=== PATIENT | female | born 1945 | race Caucasian/White ===

== ENCOUNTER 2016-12-06 06:02 | Day surgery (SDC) | payer MEDICARE, OTHER ==
[2016-12-06] MEDS ORDERED: LACTATED RINGERS 1,000 ML IV ONE (06:54)
[2016-12-06] MEDS ORDERED: ONDANSETRON 4 MG/2 ML VIAL IVP ONE (08:00)
[2016-12-06] MEDS ORDERED: MIDAZOLAM 2 MG/2 ML VIAL IVP ONE (08:00)
[2016-12-06] MEDS ORDERED: LIDOCAINE-MPF 2% 5 ML VIAL IM ONE (08:00)
[2016-12-06] MEDS ORDERED: fentaNYL 100 MCG/2 ML VIAL IVP ONE (08:00)
[2016-12-06] MEDS ORDERED: KETOROLAC 30 MG/ML VIAL IVP ONE (08:00)
[2016-12-06] MEDS ORDERED: BUPIVACAINE 0.5% PF 30 ML VIAL INFIL ONE ×2 (08:15)
[2016-12-06 09:03] VITALS: BP 137/60
--- NOTE | 2017-01-10 01:18 | OPERATIVE REPORT ---
DATE OF SURGERY: 12/06/2016 00:00:00 PREOPERATIVE DIAGNOSIS: Left carpal tunnel syndrome. POSTOPERATIVE DIAGNOSIS: Left carpal tunnel syndrome. PROCEDURE: Left carpal tunnel release. SURGEON: Dedrick Barraza MD HEALTH POLICY ANALYST: None. ANESTHESIA: Intravenous sedation plus Marcaine for local anesthetic. FINDINGS: Same. COMPLICATIONS: None. ESTIMATED BLOOD LOSS: None. TOURNIQUET: Esmarch bandage to left arm for 15 minutes. SPECIMEN REMOVED AND CULTURES: None. DISPOSITION: PACU, then home. CONDITION AT END OF PROCEDURE: Stable. INDICATIONS: This is a 71-year-old female with documented history of median nerve hypoesthesia in th e left upper extremity involving the thumb, index finger, and middle finger primarily. She had a doc umented EMG/NCV. She had a trial of splinting without success. She had also attempted antiinflammat ory medications, as well as Tylenol for analgesia. Because of her ongoing symptoms and clumsiness wi th her left arm, she elected to undergo left carpal tunnel release. PROCEDURE IN DETAIL: After consent and identification, the patient was brought to the operating room on the operating litter. After induction of moderate sedation, the left upper extremity was outstre tched on a hand table and prepped and draped free in the usual sterile fashion for upper extremity robles rgery. We used an Esmarch bandage to exsanguinate the left upper extremity to the elbow level. We then roll ed back the Esmarch bandage to expose the wrist. We injected the proposed carpal tunnel incision sit e with 10 mL of 0.5% Marcaine without epinephrine. We made a longitudinal incision from the wrist fl exor crease distally just ulnar to the mid palmar crease for a distance of 2.5 cm. Skin and subcutan eous tissue were divided with a #15 blade scalpel and tenotomy scissors down to the level of the palm ar fascia, which was divided longitudinally. Ragnell retractors and a Heiss retractor were placed in the wound to expose the flexor retinaculum. The retinaculum was divided with sweeping motions in th e mid substance with a #15 blade scalpel until we had just penetrated the mid portion of the flexor r etinaculum. We then placed a [place] elevator deep to the retinaculum distally and used the #15 blade scalpel to complete our dissection distally to the limit of the flexor retinaculum. We then reversed the [place] elevator and placed it under the proximal portion of the retinaculum. We completed our di ssection proximally with a combination of the #15 blade scalpel and the tenotomy scissors. Digital e xploration revealed adequate release of the flexor retinaculum. We irrigated the wound and closed wi th a running interlocked 4-0 nylon suture. Xeroform gauze was applied, followed by fluff Kerlix and a bulky hand dressing overwrapped with a 3-inch STAR bandage. On completion of the procedure, the Esmarch bandage was removed without complication. The patient wa s transferred to the recovery room in good condition, having tolerated the procedure well. JOB #: [id number] EXT JOB #:[id number]
== END 2016-12-06 06:03 | disposition home or self-care (01) ==
LOC: SDS 06:02
PROVIDERS: ATTEND Orthopaedic Surgery
PROC: 01N50ZZ Release Median Nerve, Open Approach (ICD-10-PCS; principal; 2016-12-06 07:30)
DX: G56.02 Carpal tunnel syndrome, left upper limb (principal); I25.2 Old myocardial infarction; I10 Essential (primary) hypertension; K21.9 Gastro-esophageal reflux disease without esophagitis; I25.10 Atherosclerotic heart disease of native coronary artery without angina pectoris; E78.5 Hyperlipidemia, unspecified; F32.9 Major depressive disorder, single episode, unspecified; F41.9 Anxiety disorder, unspecified; J45.909 Unspecified asthma, uncomplicated; G89.29 Other chronic pain; E11.9 Type 2 diabetes mellitus without complications; Z79.84 Long term (current) use of oral hypoglycemic drugs; Z85.3 Personal history of malignant neoplasm of breast; Z85.038 Personal history of other malignant neoplasm of large intestine; Z95.5 Presence of coronary angioplasty implant and graft; Z90.710 Acquired absence of both cervix and uterus; Z90.49 Acquired absence of other specified parts of digestive tract; Z90.13 Acquired absence of bilateral breasts and nipples; Z82.49 Family history of ischemic heart disease and other diseases of the circulatory system; Z84.1 Family history of disorders of kidney and ureter; Z79.82 Long term (current) use of aspirin
CPT/HCPCS: 64721; J7120

== ENCOUNTER 2017-10-16 13:03 | Inpatient (IN) | payer MEDICARE, OTHER ==
[2017-10-16] MEDS ORDERED: cefTRIAXone 1 GM in SODIUM CHLORIDE 0.9% MINIBAG 100 ML IV STA (13:47)
[2017-10-16] MEDS ORDERED: SODIUM CHLORIDE 0.9% 1,000 ML IV ONE (13:47)
--- NOTE | 2017-10-16 13:49 | ED Physician Documentation ---
PD HPI URI - Stated complaint Stated Complaint: COUGH - Chief complaint Chief Complaint: Resp - History obtained from History obtained from: Patient, Family - History of Present Illness Timing - onset: How many days ago (4) Timing duration: Days (4) Timing details: Gradual onset, Still present Associated symptoms: Fever, Chills, Productive cough, Chest pain Contributing factors: Sick contact (sister sick with pneumonia frequently) Improves by: Rest Worsened by: Activity Similar symptoms before: Has not had sx before Recently seen: Other - Additional information Additional information: 72-year-old female survivor of both colon and breast cancer has developed a cough about 4 days ago, the cough has persisted and worsened, she is coughing up yellow phlegm and yesterday she lost her energy. Today she is unable to get out of bed unassisted. She was unable to hold a glass of water. She is brought to the emergency department acutely by her son. Review of Systems Constitutional: reports: Fever, Chills, Myalgias, Fatigue, Sweats Eyes: denies: Decreased vision Ears: denies: Ear pain Nose: reports: Congestion. denies: Rhinorrhea / runny nose Throat: denies: Sore throat Cardiac: reports: Chest pain / pressure. denies: Palpitations, Pedal edema, Calf pain Respiratory: reports: Dyspnea, Cough GI: reports: Abdominal Pain. denies: Nausea, Vomiting : denies: Dysuria Skin: denies: Rash Musculoskeletal: denies: Neck pain, Back pain, Extremity pain Neurologic: reports: Generalized weakness. 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 Cardiovascular: Coronary stent HEENT: Cataracts - Present Medications Home Medications: Ambulatory Orders Medication Instructions Recorded Confirmed Alendronate Sodium 70 mg PO Q7D 07/14/15 09/12/17 HYDROcod/ACETAM 5/325 [Vicodin 1 - 2 tab PO BID PRN 07/14/15 09/12/17 5/325] Hydrochlorothiazide 25 mg PO DAILY 07/14/15 09/12/17 Isosorbide Mononitrate [Isosorbide 60 mg PO DAILY 07/14/15 09/12/17 Mononitrate ER] Metoprolol Tartrate [Lopressor] 25 mg PO BID 07/14/15 09/12/17 Omeprazole 40 mg PO DAILY 07/14/15 09/12/17 Pravastatin [Pravachol] 20 mg PO DAILY 08/04/15 09/12/17 Ubidecarenone/Vitamin E Mixed 1 tab PO DAILY 08/04/15 09/12/17 [Zuw59-[id number] E 200 mg-20 Unit Sfg] busPIRone [Buspar] 15 mg PO BID 08/04/15 09/12/17 Albuterol Sulfate [Proair Hfa] 2 puffs IH Q4HR PRN 10/06/15 09/12/17 Aspirin [Adult Low Dose Aspirin EC] 81 mg PO DAILY 10/06/15 09/12/17 Cholecalciferol (Vitamin D3) 3,000 unit PO DAILY 10/06/15 09/12/17 [Vitamin D] Niacin (Inositol Niacinate) 500 mg PO BID 10/06/15 09/12/17 [Niacin 500 mg Capsule] [place]-3/Dha/Epa/Fish Oil [Fish Oil 2,000 mg PO DAILY 10/06/15 09/12/17 Conc 1,000 mg Softgel] Pravastatin Sodium [Pravachol] 20 mg PO DAILY 11/19/15 09/12/17 Citalopram [CeleXA] 10 mg PO DAILY 09/13/16 09/12/17 metFORMIN [Glucophage] 500 mg PO BID 09/13/16 09/12/17 - Allergies Allergies/Adverse Reactions: Allergies Allergy/AdvReac Type Severity Reaction Status Date / Time atorvastatin calcium * Allergy Rash Verified 10/16/17 13:13 [From Lipitor] mushroom Allergy Anaphylaxis Verified 10/16/17 13:13 cat gut AdvReac Intermediate Unknown Uncoded 10/16/17 13:13 - Social History Does the pt smoke?: No Smoking Status: Former smoker PD ED PE NORMAL - Vitals Vital signs reviewed: Yes (febrile and with diastolic hypertension mild) - General General: Well developed/nourished - HEENT HEENT: Atraumatic, PERRL, EOMI, Other (dry mucous membranes ) - Neck Neck: Supple, no meningeal sign, No bony TTP - Cardiac Cardiac: RRR, No murmur - Respiratory Respiratory: Other (tachypneic at rest with bibasilar rhonchi and decreased breath sounds. ) - Abdomen Abdomen: Soft, Other (mild marlena-umbilical tenderness and erythema. ) - Back Back: No CVA TTP, No spinal TTP - Derm Derm: Normal color, Warm and dry, No rash - Extremities Extremities: No deformity, No edema - Neuro Neuro: No motor deficit, No sensory deficit Eye Opening: Spontaneous Motor: Obeys Commands Verbal: Oriented GCS Score: 15 - Psych Psych: Normal mood, Normal affect Results - Vitals Vitals: Vital Signs - 24 hr 10/16/17 10/16/17 10/16/17 13:09 13:35 14:44 Temperature 38.1 C H 38.9 C H 36.7 C Heart Rate 87 87 Respiratory 24 19 Rate Blood Pressure 119/81 H 125/57 L O2 Saturation 97 100 Oxygen O2 Source Room air - EKG (time done) 1330 Rate: Rate (enter#) (84) Rhythm: NSR Ischemia: ST depression (V2 and V3 ) Compare to prior EKG: Changed from prior EKG (SPT 10-16-[address] depression in V2 and V3 has increased. ) Computer interpretation: Agree with computer - Labs Labs: Laboratory Tests 10/16/17 10/16/17 10/16/17 13:28 13:28 13:28 WBC 11.5 H RBC 3.21 L Hgb 8.0 L Hct 25.7 L MCV 80.2 L MCH 25.0 L MCHC 31.3 L RDW 18.5 H Plt Count 292 MPV 8.1 Neut # 9.0 H Lymph # 1.0 L [place] # 1.2 H Eos # 0.3 Baso # 0.0 Absolute Nucleated RBC 0.01 Nucleated RBC % 0.0 Sodium 137 Potassium 4.1 Chloride 104 Carbon Dioxide 25 Anion Gap 8.0 BUN 29 H Creatinine 1.0 Estimated GFR (MDRD) 54 L Glucose 154 H Lactic Acid 1.3 Calcium 8.9 Total Bilirubin 0.7 AST 26 ALT 21 Alkaline Phosphatase 41 L Troponin I Total Protein 6.4 L Albumin 3.2 Globulin 3.2 Albumin/Globulin Ratio 1.0 Lipase 18 L Urine Color Urine Clarity Urine pH Ur Specific [place] Urine Protein Urine Glucose (UA) Urine Ketones Urine Occult Blood Urine Nitrite Urine Bilirubin Urine Urobilinogen Ur Leukocyte Esterase Urine RBC Urine WBC Ur Squamous Epith Cells Urine Bacteria Ur Microscopic Review Urine Culture Comments 10/16/17 10/16/17 13:28 13:57 WBC RBC Hgb Hct MCV MCH MCHC RDW Plt Count MPV Neut # Lymph # [place] # Eos # Baso # Absolute Nucleated RBC Nucleated RBC % Sodium Potassium Chloride Carbon Dioxide Anion Gap BUN Creatinine Estimated GFR (MDRD) Glucose Lactic Acid Calcium Total Bilirubin AST ALT Alkaline Phosphatase Troponin I 0.08 Total Protein Albumin Globulin Albumin/Globulin Ratio Lipase Urine Color YELLOW Urine Clarity CLEAR Urine pH 5.5 Ur Specific [place] 1.025 Urine Protein NEGATIVE Urine Glucose (UA) NEGATIVE Urine Ketones NEGATIVE Urine Occult Blood TRACE-INTA Urine Nitrite NEGATIVE Urine Bilirubin NEGATIVE Urine Urobilinogen 0.2 (NORMAL) Ur Leukocyte Esterase TRACE H Urine RBC 0-5 Urine WBC 6-10 H Ur Squamous Epith Cells RARE Squamous Urine Bacteria Few Ur Microscopic Review INDICATED Urine Culture Comments INDICATED - Rads (name of study) 1 veiw chest Radiology: Prelim report reviewed (Impression: No acute findings.), EMP read indepedently, See rad report Procedures - IVC sono (time) 1335 Bedside IVC sono: IVC measures (cm) (unable to visualize) PD MEDICAL DECISION MAKING - ED course Complexity details: reviewed old records, reviewed results, re-evaluated patient , considered differential, d/w patient, d/w family ED course: 72 year old female arrives to the emergency department febrile and weak. She has had a cough for 4 days. My initial impression was likely pneumonia and this was not present on her x-ray. She does have elevated white blood cell count and bacteria in the urine this is treated with intravenous ceftriaxone. Findings on laboratory exam are concerning for an elevated white blood cell count a low hematocrit at 25.7 and indeterminate troponin. She does have ST depression in the anterior leads on her electric cardiogram that are increased from prior electrocardiogram. My concern is for myocardial strain with illness and this may be related to anemia, dehydration or infection or all 3. I discussed the case with Dr. Balta De La Cruz and he will put the patient into the hospital on observation to trend her concerning findings. Departure - Departure Disposition: ED Place in Observation Clinical Impression: Upper respiratory tract infection Qualifiers: URI type: unspecified URI Qualified Code(s): J06.9 - Acute upper respiratory infection, unspecified Anemia Qualifiers: Anemia type: unspecified type Qualified Code(s): D64.9 - Anemia, unspecified Urinary tract infection Qualifiers: Urinary tract infection type: acute cystitis Hematuria presence: without hematuria Qualified Code(s): N30.00 - Acute cystitis without hematuria
[2017-10-16 13:51] LABS: BASOPHILS % (AUTO) 0.2 %; EOSINOPHILS # (AUTO) 0.3 10^3/uL (0.0-0.7); EOSINOPHILS % (AUTO) 2.8 %; LYMPHOCYTES % (AUTO) 8.9 %; MEAN CORPUSCULAR HGB CONC 31.3 g/dL (32.0-36.0); MEAN CORPUSCULAR VOLUME 80.2 fL (81.0-99.0); MEAN PLATELET VOLUME 8.1 fL (7.9-10.8); MONOCYTES # (AUTO) 1.2 10^3/uL (0.0-1.0); MONOCYTES % (AUTO) 10.2 %; NEUTROPHILS % (AUTO) 77.9 %; PLT - PLATELET COUNT 292 10^3/uL (130-450); RED BLOOD COUNT 3.21 10^6/uL (4.20-5.40); RED CELL DISTRIBUTION WIDTH 18.5 % (12.0-15.0); WHITE BLOOD COUNT 11.5 x10^3/uL (4.8-10.8)
[2017-10-16 13:58] LABS: ALBUMIN 3.2 g/dL (3.2-5.5); BILIRUBIN,TOTAL 0.7 mg/dL (0.2-1.0); CALCIUM 8.9 mg/dL (8.5-10.3); TOTAL PROTEIN 6.4 g/dL (6.7-8.2)
[2017-10-16 14:11] LABS: BILIRUBIN,URINE NEGATIVE (NEGATIVE); GLUCOSE, URINE (UA) NEGATIVE (NEGATIVE); KETONES,URINE (UA) NEGATIVE (NEGATIVE); LEUKOCYTE ESTERASE, URINE TRACE (NEGATIVE); NITRITE,URINE NEGATIVE (NEGATIVE); OCCULT BLOOD,URINE TRACE-INTA (NEGATIVE); PH,URINE 5.5 PH (5.0-7.5); PROTEIN,URINE NEGATIVE (NEGATIVE); UROBILINOGEN,URINE 0.2 (NORMAL) E.U./dL (NORMAL)
[2017-10-16 14:13] LABS: CLARITY,URINE CLEAR (CLEAR)
[2017-10-16 14:23] LABS: BACTERIA,URINE Few /HPF (None Seen); RBC,URINE 0-5 /HPF (0-5); SQUAMOUS EPITHELIAL CELL,UR RARE Squamous (<= Few)
--- NOTE | 2017-10-16 14:45 | XRAY Report ---
EXAM: CHEST RADIOGRAPHY EXAM DATE: 10/16/2017 01:56 PM. CLINICAL HISTORY: Cough with chest pain. COMPARISON: 11/18/2016. TECHNIQUE: 1 view. FINDINGS: Lungs/Pleura: No focal consolidation. No pleural effusion. No pneumothorax. Mediastinum: The heart is enlarged. Other: ECG leads overlie the chest. IMPRESSION: No acute findings. [facility] Referring Provider Line: [phone] SITE ID: [id number]
--- NOTE | 2017-10-16 14:45 | XRAY Preliminary Report ---
Exam: XR CHEST 1 VIEW X-RAY IMPRESSION: No acute findings. [facility] SITE ID: [id number]
[2017-10-16] MEDS ORDERED: SODIUM CHLORIDE 0.9% 1,000 ML IV SCH (16:00)
--- NOTE | 2017-10-16 16:05 | HISTORY & PHYSICAL EXAMINATION ---
Chief Complaint - Chief Complaint Chief Complaint: cough with sputum History of Present Illness - Admitted From Admitted From:: ER - History Obtained From History obtained from: pt - History of Present Illness HPI Comment/Other: Ms. Cary is 72-yrs-old female with a PMH significant for HTN, Hyperlipidemia, CAD with coronary stent, [place], Asthma, DM2, GERD, Colon polyps, cholelithiasis, depression, anxiety, osteoarthritis, fibromyalgia, RA, osteopenia, chronic back pain, hx of breast cancer with status post of bilateral mastectomy, who present ER for complaint of fever and cough with greenish sputum for two days. pt is a poor historian. Pt report she felt sickness for two days with cough, greenish sputum and fever. Pt state she is living with her young sister in [place]. She take care of her young sister because her young sister is dialysis pt and need her help. She denies chest pain, shortness of breathing, dysuria. CXR reveals unremarkable. Pt had slight elevated WBC. UA reveals possible UTI. pt was fible 38.1 degree at ER. 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 Pt for many years. Pt had three children. Daughter is in [place], one son is in the [place], one from drug abuse. Living arrangement: At home Living Situation: With family Social History Notes: pt reports she never somke cigarette, no alcohol and drug problem. She took care of her young sister because hre young sister has dialysis medical problem, need her help. - Substance History Use: Uses substance without health or social issues: NONE Dependence: Experiences withdrawal or developed tolerances: NONE - POLST POLST Status: Full Code Meds/Allgy - Home Medications Home Medications: Ambulatory Orders Medication Instructions Recorded Confirmed Alendronate Sodium 70 mg PO Q7D 07/14/15 10/16/17 Metoprolol Tartrate [Lopressor] 25 mg PO BID 07/14/15 10/16/17 Omeprazole 40 mg PO DAILY 07/14/15 10/16/17 Pravastatin [Pravachol] 20 mg PO DAILY 08/04/15 10/16/17 busPIRone [Buspar] 15 mg PO BID 08/04/15 10/16/17 Aspirin [Adult Low Dose Aspirin EC] 81 mg PO DAILY 10/06/15 10/16/17 [place]-3/Dha/Epa/Fish Oil [Fish Oil 2,000 mg PO DAILY 10/06/15 10/16/17 Conc 1,000 mg Softgel] Citalopram [CeleXA] 20 mg PO DAILY 09/13/16 10/16/17 Cyanocobalamin (Vitamin B-12) 500 mcg SL DAILY 10/16/17 10/16/17 [Vitamin B-12 (500 mcg sublingual)] Garlic 1,000 mg PO DAILY 10/16/17 10/16/17 Multivit-Min/Folic Acid/Vit K1 1 each PO DAILY 10/16/17 10/16/17 [Multi For Her 50 Plus Softgel] Niacin (Inositol Niacinate) 500 mg PO BID 10/16/17 10/16/17 [Niacin 500 mg Capsule] Metformin HCl 100 mg PO BIDWM 10/17/17 10/17/17 hydroCHLOROthiazide 25 mg PO DAILY 10/17/17 10/17/17 [Hydrochlorothiazide] - Allergies Allergies/Adverse Reactions: Allergies Allergy/AdvReac Type Severity Reaction Status Date / Time lactose Allergy Intermediate Rash Verified 10/16/17 17:55 atorvastatin calcium * Allergy Rash Verified 10/16/17 13:13 [From Lipitor] mushroom Allergy Anaphylaxis Verified 10/16/17 13:13 cat gut AdvReac Intermediate Unknown Uncoded 10/16/17 13:13 Review of Systems - Constitutional Constitutional: reports: Fever, Chills. denies: Malaise, Weakness, Poor appetite, Diaphoresis, Night sweats - Eyes Eyes: denies: Pain, Irritation, Amaurosis, Blurred vision, Spots in vision, Field loss, Vision loss, Dipolpia - Ears, Nose & Throat Ears, Nose & Throat: denies: Ear pain, Hearing loss, Hearing aids, Tinnitus, Vertigo, Nasal pain, Nasal discharge, Nosebleeds, Nasal obstruction, Nasal congestion, Postnasal drainage, Sore throat, Bleeding gums - Cardiovascular Cariovascular: denies: Irregular heart rate, Palpitations, Chest pain, Edema, Lightheadedness, Syncope, Exertional dyspnea, Decr. exercise tolerance - Respiratory Respiratory: reports: Cough, Sputum production. denies: Wheezing, Snoring, Hemoptysis, Orthopnea, SOB at rest, SOB with exertion - Gastrointestinal Gastrointestinal: denies: Abdominal pain, Abdominal distention, Constipation, Diarrhea, Change in bowel habits, Rectal bleeding, Black stools, Bloody stools, Nausea, Vomiting, Bile emesis, [place] blood emesis - Genitourinary Genitourinary: denies: Dysuria, Frequency, Urgency, Hematuria, Incontinence, Flank pain, Nocturia, Urethral discharge - Musculoskeletal Musculoskeletal: denies: Muscle pain, Back pain, Muscle aches, Stiffness, Limited range of motion, Muscle weakness, Gout, Joint pain - Integumentary Integumentary: denies: Rash, Pruritis, Lesions, Dryness, Acne, Pigment changes - Neurological Neurological: denies: General weakness, Focal weakness, Headache, Dizziness, Numbness, Memory problems, Pre-existing deficit, Abnormal gait, Seizures, Incoordination, Slurred speech - Psychiatric Psychiatric: denies: Depression, Anxiety, Suicidal, Delusions, Hallucinations, Homicidal - Endocrine Endocrine: denies: Polyuria, Polydypsia, Polyphagia, Intolerance to cold - Hematologic/Lymphatic Hematologic/Lymphatic: reports: Anemia. denies: Bruising, Petechiae, Blood clots, Lymphadenopathy, Bleeding tendencies Exam - Vital Signs Reviewed Vital Signs: Yes Vital Signs: Vital Signs x48h Temp Pulse Resp BP Pulse Ox 10/16/17 15:00 90 21 139/71 H 96 10/16/17 14:44 36.7 C 87 19 125/57 L 100 10/16/17 13:35 38.9 C H 10/16/17 13:09 38.1 C H 87 24 119/81 H 97 - Physical Exam General Appearance: positive: No acute distress, Alert. negative: Lethargic Eyes Bilateral: positive: Normal inspection, PERRL, No lid inflammation, Conjunctivae nml ENT: positive: ENT inspection nml, Pharynx nml, No signs of dehydration. negative: Purulent nasal drainage, Pharyngeal erythema, Oral lesions Neck: positive: Nml inspection, Thyroid nml, No JVD, Trachea midline. negative : Thyromegaly, Lymphadenopathy (R), Lymphadenopathy (L), Stiff neck, Swelling/ bruising, Tracheal deviation Respiratory: positive: Chest non-tender, No respiratory distress, Breath sounds nml. negative: Wheezes, Rales, Rhonchi Cardiovascular: positive: Regular rate & rhythm, No murmur, No gallop. negative : Irregularly irregular, Extrasystoles, Tachycardia, Bradycardia, Systolic murmur, Diastolic murmur Peripheral Pulses: positive: 2+ Abdomen: positive: Non-tender, No organomegaly, Nml bowel sounds, No distention. negative: Tenderness, Guarding, Rebound Back: positive: Nml inspection. negative: CVA tenderness (R), CVA tenderness (L ) Skin: positive: Color nml, No rash, Warm, Dry. negative: Cyanosis, Diaphoresis , Pallor Extremities: positive: Non-tender, Full ROM, Nml appearance. negative: Calf tenderness, Joint swelling, Gautam's sign/cords Neurologic/Psychiatric: positive: Sensation nml, Mood/affect nml. negative: Sensory loss, Facial droop, Slurred/abnml speech, Depressed mood/affect Conclusion/Plan - Problem List (1) Cough productive of purulent sputum Conclusion/Plan: CXR reveals negative, but pt began symptoms two days ago per pt report. pt had fever in home and ER. WBC is slightly elevated. treated with antibiotics, check lactic acid blood culture , follow up gently IVF hx of asthma/COPD, INH treatment, O2 supplement as needed daily lab, and vital monitor (2) Fever chills Conclusion/Plan: clinic indicate PNA treat with antibiotics IVF, check lactic acid lab and vital monitor (3) Urinary tract infection Conclusion/Plan: weak diagnosis of UTI, pt has Rocephin for PNA, continue follow up UA Qualifiers: Urinary tract infection type: acute cystitis Hematuria presence: without hematuria Qualified Code(s): N30.00 - Acute cystitis without hematuria (4) DM2 (diabetes mellitus, type 2) Conclusion/Plan: hx of DM2 check A1C, follow up slide scale, ACHS (5) Chronic anemia Conclusion/Plan: chronic anemia, Hx of breast cancer and colon cancer. anemia study, follow up MCV 80.2, seems microcytic anemia, start on Ferrous sulf H&H, follow as needed for blood transfusion pt denies GI bleed, order once Occult blood stool test (6) Hx of coronary artery disease Conclusion/Plan: stable, pt denies chest pain. first Troponin 0.08, order second one, follow up. EKG unremarkable for acute CAD on tele monitor vital monitor (7) HTN (hypertension) Conclusion/Plan: stable, resume home meds (8) DVT prophylaxis Conclusion/Plan: SCD and Lovenox (9) Full code status Conclusion/Plan: pt request full code status - Lab Results Fish Bones: 10/17/17 06:47 10/17/17 06:47 Core Measures - Anticipated LOS I expect patient to be DC'd or transferred within 96 hours.: Yes - DVT/VTE - Prophylaxis VTE/DVT Device ordered at admit?: Yes VTE/DVT Prophylaxis med ordered at admit?: Yes
[2017-10-16 16:23] LABS: % IRON SATURATION 5 % (20-50); IRON 18 ug/dL (28-170); TOTAL IRON BINDING CAPACITY 374 ug/dL (250-450); TRANSFERRIN 267 mg/dL (192-382)
[2017-10-16 16:30] LABS: MEAN RETIC VALUE 119.4; RED BLOOD COUNT 3.19 10^6/uL (4.20-5.40)
[2017-10-16 16:39] LABS: FERRITIN 17.2 ng/mL (11.0-306.8)
[2017-10-16] MEDS: INSULIN ASPART 300 UNIT/3 ML PEN SUBQ SCH ×2 (16:45→21:25)
[2017-10-16] MEDS: IPRATROPIUM/ALBUTEROL 3 ML NEB INH PRN (17:00)
[2017-10-16] MEDS: FERROUS SULFATE 325 MG TABLET PO SCH (17:20)
[2017-10-16 17:23] LABS: HB2 TOTAL 8.6 g/dL; HEMOGLOBIN A1C 0.37 g/dL; HEMOGLOBIN A1C % 6.1 % (4.6-6.2)
[2017-10-16] MEDS: SODIUM CHLORIDE FLUSH 0.9% 10 ML SYRINGE IVP SCH (17:25)
[2017-10-16] MEDS ORDERED: ALBUTEROL NEB 2.5 MG/3 ML INH PRN (17:31)
[2017-10-16] MEDS: AZITHROMYCIN INJ 500 MG in SODIUM CHLORIDE 0.9% 250 ML IV SCH (18:04)
[2017-10-16] MEDS: ACETAMINOPHEN 325 MG TABLET PO PRN (19:50)
[2017-10-16] MEDS: busPIRone 5 MG TABLET PO SCH (21:25)
[2017-10-16] MEDS: PRAVASTATIN 10 MG TABLET PO SCH (21:25)
[2017-10-16] MEDS: METOPROLOL TARTRATE 25 MG TABLET PO SCH (21:49)
[2017-10-16 22:09] LABS: HGB - HEMOGLOBIN 6.5 g/dL (12.0-16.0)
[2017-10-17] MEDS: SODIUM CHLORIDE FLUSH 0.9% 10 ML SYRINGE IVP SCH ×4 (06:18→23:43)
[2017-10-17 06:55] LABS: BASOPHILS # (AUTO) 0.1 10^3/uL (0.0-0.1); BASOPHILS % (AUTO) 0.7 %; EOSINOPHILS # (AUTO) 0.5 10^3/uL (0.0-0.7); EOSINOPHILS % (AUTO) 5.2 %; HGB - HEMOGLOBIN 9.1 g/dL (12.0-16.0); LYMPHOCYTES % (AUTO) 21.7 %; MEAN CORPUSCULAR HEMOGLOBIN 25.6 pg (27.0-31.0); MEAN CORPUSCULAR HGB CONC 31.7 g/dL (32.0-36.0); MEAN CORPUSCULAR VOLUME 80.9 fL (81.0-99.0); MEAN PLATELET VOLUME 7.8 fL (7.9-10.8); MONOCYTES # (AUTO) 1.2 10^3/uL (0.0-1.0); MONOCYTES % (AUTO) 12.8 %; NEUTROPHILS # (AUTO) 5.6 10^3/uL (1.5-6.6); NEUTROPHILS % (AUTO) 59.6 %; PLT - PLATELET COUNT 242 10^3/uL (130-450); RED BLOOD COUNT 3.54 10^6/uL (4.20-5.40); RED CELL DISTRIBUTION WIDTH 16.9 % (12.0-15.0); WHITE BLOOD COUNT 9.4 x10^3/uL (4.8-10.8)
[2017-10-17 07:04] LABS: ALBUMIN 2.7 g/dL (3.2-5.5); BILIRUBIN,TOTAL 0.8 mg/dL (0.2-1.0); CALCIUM 7.8 mg/dL (8.5-10.3); CREATININE 0.8 mg/dL (0.4-1.0); MAGNESIUM 1.3 mg/dL (1.7-2.8); TOTAL PROTEIN 5.5 g/dL (6.7-8.2)
[2017-10-17] MEDS: SODIUM CHLORIDE 0.9% 1,000 ML IV SCH ×2 (07:33→14:40)
[2017-10-17] MEDS: INSULIN ASPART 300 UNIT/3 ML PEN SUBQ SCH ×4 (07:34→21:25)
[2017-10-17] MEDS ORDERED: MAGNESIUM OXIDE 400 MG TABLET PO ONE (08:00)
[2017-10-17] MEDS: cefTRIAXone 1 GM in SODIUM CHLORIDE 0.9% MINIBAG 100 ML IV SCH (08:31)
[2017-10-17] MEDS: METOPROLOL TARTRATE 25 MG TABLET PO SCH ×2 (08:32→21:18)
[2017-10-17] MEDS: busPIRone 5 MG TABLET PO SCH ×2 (08:32→21:18)
[2017-10-17] MEDS: FERROUS SULFATE 325 MG TABLET PO SCH ×2 (08:33→17:20)
[2017-10-17] MEDS: CITALOPRAM 10 MG TABLET PO SCH (08:33)
[2017-10-17] MEDS: ENOXAPARIN 40 MG/0.4 ML SYRINGE SUBQ SCH (08:33)
[2017-10-17] MEDS: FAMOTIDINE 20 MG TABLET PO SCH (08:34)
[2017-10-17] MEDS: POLYETHYLENE GLYCOL 3350 17 GM PACKET PO SCH (08:34)
[2017-10-17] MEDS: guaiFENesin 600 MG TABLET PO SCH ×2 (08:46→21:18)
[2017-10-17] MEDS: ACETAMINOPHEN 325 MG TABLET PO PRN ×3 (08:51→23:42)
[2017-10-17] MEDS ORDERED: cefTRIAXone 1 GM VIAL IVP SCH (09:00)
[2017-10-17] MEDS: AZITHROMYCIN INJ 500 MG in SODIUM CHLORIDE 0.9% 250 ML IV SCH (09:29)
--- NOTE | 2017-10-17 11:38 | PROVIDER PROGRESS NOTE ---
Subjective - Prog Note Date Prog Note Date: 10/17/17 - Subjective Pt reports feeling: Improved Subjective: pt report she feels better, cough is better, no fever on last night. Pt denies chest pain, SOB. Current Medications - Current Medications Current Medications: Active Medications Acetaminophen (Tylenol) 650 mg PO Q4HR PRN PRN Reason: Pain 1 to 4 Last Admin: 10/17/17 08:51 Dose: 650 mg Albuterol () 2.5 mg INH RTQ4H PRN PRN Reason: Wheezing Last Admin: 10/17/17 10:53 Dose: 2.5 mg Albuterol/Ipratropium (Duoneb) 3 ml INH Q4HR PRN PRN Reason: Wheezing Last Admin: 10/16/17 17:00 Dose: 3 ml Alendronate Sodium (Fosamax) 70 mg PO Q7D [facility] Buspirone HCl (Buspar) 15 mg PO BID [facility] Last Admin: 10/17/17 08:32 Dose: 15 mg Citalopram Hydrobromide (Celexa) 20 mg PO DAILY [facility] Last Admin: 10/17/17 08:33 Dose: 20 mg Enoxaparin Sodium (Lovenox) 40 mg SUBQ DAILY [facility] Last Admin: 10/17/17 08:33 Dose: 40 mg Famotidine (Pepcid) 20 mg PO DAILY [facility] Last Admin: 10/17/17 08:34 Dose: 20 mg Ferrous Sulfate (Feosol) 325 mg PO BIDWM [facility] Last Admin: 10/17/17 08:33 Dose: 325 mg Guaifenesin (Mucinex) 600 mg PO BID [facility] Last Admin: 10/17/17 08:46 Dose: 600 mg Ceftriaxone Sodium 1 gm/ (Sodium Chloride) 100 mls @ 200 mls/hr IV DAILY [facility] Last Infusion: 10/17/17 09:08 Dose: Infused Azithromycin 500 mg/ Sodium (Chloride) 250 mls @ 250 mls/hr IV DAILY [facility] Last Infusion: 10/17/17 10:33 Dose: Infused Magnesium Sulfate 1 gm/ Sodium (Chloride) 52 mls @ 54 mls/hr IV ONCE ONE Stop: 10/17/17 13:57 Calcium Gluconate 1,000 mg/ (Sodium Chloride) 60 mls @ 60 mls/hr IV ONCE ONE Stop: 10/17/17 12:59 Sodium Chloride (Normal Saline 0.9%) 1,000 mls @ 75 mls/hr IV .[id number] [facility] Last Admin: 10/17/17 07:33 Dose: Not Given Insulin Aspart (Novolog) 1 - 5 unit SUBQ 0800,1200,1700,2100 [facility] PRN Reason: Protocol Last Admin: 10/17/17 07:34 Dose: Not Given Metoprolol Tartrate (Lopressor) 25 mg PO BID [facility] Last Admin: 10/17/17 08:32 Dose: 25 mg Ondansetron HCl (Zofran Inj) 4 mg IVP Q6HR PRN PRN Reason: Nausea / Vomiting Polyethylene Glycol (Miralax) 17 gm PO DAILY [facility] Last Admin: 10/17/17 08:34 Dose: 17 gm Pravastatin Sodium (Pravachol) 20 mg PO QPM [facility] Last Admin: 10/16/17 21:25 Dose: 20 mg Sodium Chloride (Normal Saline Flush 0.9%) 10 ml IVP PRN PRN PRN Reason: NEEDED PER PROVIDER ORDERS Sodium Chloride (Normal Saline Flush 0.9%) 10 ml IVP 0100,0900,1700 [facility] Last Admin: 10/17/17 07:35 Dose: Not Given Alendronate Sodium 70 mg PO Q7D 07/14/15 Metoprolol Tartrate [Lopressor] 25 mg PO BID 07/14/15 Omeprazole 40 mg PO DAILY 07/14/15 Pravastatin [Pravachol] 20 mg PO DAILY 08/04/15 busPIRone [Buspar] 15 mg PO BID 08/04/15 Aspirin [Adult Low Dose Aspirin EC] 81 mg PO DAILY 10/06/15 [place]-3/Dha/Epa/Fish Oil [Fish Oil Conc 1,000 mg Softgel] 2,000 mg PO DAILY Citalopram [CeleXA] 20 mg PO DAILY 09/13/16 Cyanocobalamin (Vitamin B-12) [Vitamin B-12 (500 mcg sublingual)] 500 mcg SL DAILY 10/16/17 Garlic 1,000 mg PO DAILY 10/16/17 Multivit-Min/Folic Acid/Vit K1 [Multi For Her 50 Plus Softgel] 1 each PO DAILY 10/16/17 Niacin (Inositol Niacinate) [Niacin 500 mg Capsule] 500 mg PO BID 10/16/17 Metformin HCl 100 mg PO BIDWM 10/17/17 hydroCHLOROthiazide [Hydrochlorothiazide] 25 mg PO DAILY 10/17/17 Objective - Vital Signs/Intake & Output Reviewed Vital Signs: Yes Vital Signs: Vital Signs x48h Temp Pulse Pulse Resp BP BP Pulse Ox 10/17/17 10:53 65 16 10/17/17 08:32 124/53 L 10/17/17 07:26 37.6 C H 70 17 124/53 L 96 10/17/17 06:09 37.6 C H 70 18 120/60 Intake & Output: Intake & Output 10/14/17 10/15/17 10/16/17 10/17/17 23:59 23:59 23:59 23:59 Intake Total 0012.862 4781.513 Output Total 1550 Balance 1055.092 527.513 - Objective General Appearance: positive: No acute distress, Alert. negative: Lethargic Eyes Bilateral: positive: Normal inspection, PERRL, No lid inflammation, Conjunctivae nml ENT: positive: ENT inspection nml, Pharynx nml, No signs of dehydration. negative: Purulent nasal drainage, Pharyngeal erythema, Oral lesions Neck: positive: Nml inspection, Thyroid nml, No JVD, Trachea midline. negative : Thyromegaly, Lymphadenopathy (R), Lymphadenopathy (L), Stiff neck, Carotid bruit, Swelling/bruising, Tracheal deviation Respiratory: positive: Chest non-tender, No respiratory distress, Breath sounds nml. negative: Wheezes, Rales, Rhonchi Cardiovascular: positive: Regular rate & rhythm, No murmur, No gallop. negative : Irregularly irregular, Extrasystoles, Tachycardia, Bradycardia, JVD present, Systolic murmur, Diastolic murmur Peripheral Pulses: 2+ Radial (R), 2+ Radial (L), 2+ Dorsalis pedis (R), 2+ Dorsalis pedis (L) Abdomen: positive: Non-tender, No organomegaly, Nml bowel sounds, No distention. negative: Tenderness, Guarding, Rebound Back: positive: Nml inspection. negative: CVA tenderness (R), CVA tenderness (L ) Skin: positive: Color nml, No rash, Warm, Dry. negative: Cyanosis, Diaphoresis , Pallor Extremities: positive: Non-tender, Full ROM, Nml appearance. negative: Calf tenderness, Joint swelling, Gautam's sign/cords Neurologic/Psychiatric: positive: Motor nml, Sensation nml, Mood/affect nml. negative: Weakness, Sensory loss, Facial droop, Slurred/abnml speech, Depressed mood/affect - Lab Results Fish Bones: 10/17/17 06:47 10/17/17 06:47 Other Labs: Lab Results x24hrs 10/17/17 10/17/17 10/17/17 Range/Units 07:23 06:47 06:47 WBC 9.4 (4.8-10.8) x10^3/uL RBC 3.54 L (4.20-5.40) 10^6/uL Hgb 9.1 L (12.0-16.0) g/dL Hct 28.7 L (37.0-47.0) % MCV 80.9 L (81.0-99.0) fL MCH 25.6 L (27.0-31.0) pg MCHC 31.7 L (32.0-36.0) g/dL RDW 16.9 H (12.0-15.0) % Plt Count 242 (130-450) 10^3/uL MPV 7.8 L (7.9-10.8) fL Neut # 5.6 (1.5-6.6) 10^3/uL Lymph # 2.0 (1.5-3.5) 10^3/uL Sabine # 1.2 H (0.0-1.0) 10^3/uL Eos # 0.5 (0.0-0.7) 10^3/uL Baso # 0.1 (0.0-0.1) 10^3/uL Absolute Nucleated RBC 0.00 x10^3/uL Nucleated RBC % 0.0 /100WBC Sodium 139 (135-145) mmol/L Potassium 3.5 (3.5-5.0) mmol/L Chloride 107 (101-111) mmol/L Carbon Dioxide 24 (21-32) mmol/L Anion Gap 8.0 (6-13) BUN 20 (6-20) mg/dL Creatinine 0.8 (0.4-1.0) mg/dL Estimated GFR (MDRD) 70 L (>89) Glucose 101 H (70-100) mg/dL POC Whole Bld Glucose 96 (70 - 100) mg/dL Calcium 7.8 L (8.5-10.3) mg/dL Magnesium 1.3 L (1.7-2.8) mg/dL Total Bilirubin 0.8 (0.2-1.0) mg/dL AST 18 (10-42) IU/L ALT 16 (10-60) IU/L Alkaline Phosphatase 37 L (42-121) IU/L Troponin I (<0.49) ng/mL Total Protein 5.5 L (6.7-8.2) g/dL Albumin 2.7 L (3.2-5.5) g/dL Globulin 2.8 (2.1-4.2) g/dL Albumin/Globulin Ratio 1.0 (1.0-2.2) 10/16/17 10/16/17 10/16/17 Range/Units 23:20 21:56 21:18 WBC (4.8-10.8) x10^3/uL RBC (4.20-5.40) 10^6/uL Hgb 6.5 L* (12.0-16.0) g/dL Hct 21.4 L (37.0-47.0) % MCV (81.0-99.0) fL MCH (27.0-31.0) pg MCHC (32.0-36.0) g/dL RDW (12.0-15.0) % Plt Count (130-450) 10^3/uL MPV (7.9-10.8) fL Neut # (1.5-6.6) 10^3/uL Lymph # (1.5-3.5) 10^3/uL Sabine # (0.0-1.0) 10^3/uL Eos # (0.0-0.7) 10^3/uL Baso # (0.0-0.1) 10^3/uL Absolute Nucleated RBC x10^3/uL Nucleated RBC % /100WBC Sodium (135-145) mmol/L Potassium (3.5-5.0) mmol/L Chloride (101-111) mmol/L Carbon Dioxide (21-32) mmol/L Anion Gap (6-13) BUN (6-20) mg/dL Creatinine (0.4-1.0) mg/dL Estimated GFR (MDRD) (>89) Glucose (70-100) mg/dL POC Whole Bld Glucose 138 H (70 - 100) mg/dL Calcium (8.5-10.3) mg/dL Magnesium (1.7-2.8) mg/dL Total Bilirubin (0.2-1.0) mg/dL AST (10-42) IU/L ALT (10-60) IU/L Alkaline Phosphatase (42-121) IU/L Troponin I 0.11 (<0.49) ng/mL Total Protein (6.7-8.2) g/dL Albumin (3.2-5.5) g/dL Globulin (2.1-4.2) g/dL Albumin/Globulin Ratio (1.0-2.2) 10/16/17 10/16/17 Range/Units 18:55 16:43 WBC (4.8-10.8) x10^3/uL RBC (4.20-5.40) 10^6/uL Hgb (12.0-16.0) g/dL Hct (37.0-47.0) % MCV (81.0-99.0) fL MCH (27.0-31.0) pg MCHC (32.0-36.0) g/dL RDW (12.0-15.0) % Plt Count (130-450) 10^3/uL MPV (7.9-10.8) fL Neut # (1.5-6.6) 10^3/uL Lymph # (1.5-3.5) 10^3/uL Sabine # (0.0-1.0) 10^3/uL Eos # (0.0-0.7) 10^3/uL Baso # (0.0-0.1) 10^3/uL Absolute Nucleated RBC x10^3/uL Nucleated RBC % /100WBC Sodium (135-145) mmol/L Potassium (3.5-5.0) mmol/L Chloride (101-111) mmol/L Carbon Dioxide (21-32) mmol/L Anion Gap (6-13) BUN (6-20) mg/dL Creatinine (0.4-1.0) mg/dL Estimated GFR (MDRD) (>89) Glucose (70-100) mg/dL POC Whole Bld Glucose 118 H (70 - 100) mg/dL Calcium (8.5-10.3) mg/dL Magnesium (1.7-2.8) mg/dL Total Bilirubin (0.2-1.0) mg/dL AST (10-42) IU/L ALT (10-60) IU/L Alkaline Phosphatase (42-121) IU/L Troponin I 0.15 (<0.49) ng/mL Total Protein (6.7-8.2) g/dL Albumin (3.2-5.5) g/dL Globulin (2.1-4.2) g/dL Albumin/Globulin Ratio (1.0-2.2) ABX Reporting Has patient been on IV antibiotics over the past 48 hours?: Yes Assessment/Plan - Problem List (1) Cough productive of purulent sputum Impression: Conclusion/Plan: cough is better controlled, no fever on last night continue antibiotics follow up blood culture and sputum culture CXR reveals negative, but pt began symptoms two days ago per pt report. pt had fever in home and ER. WBC is slightly elevated. treated with antibiotics, check lactic acid blood culture , follow up gently IVF hx of asthma/COPD, INH treatment, O2 supplement as needed daily lab, and vital monitor (2) Fever chills Conclusion/Plan: no fever on last night but with slight elevated temperature continue antibiotics follow blood culture clinic indicate PNA treat with antibiotics IVF, check lactic acid lab and vital monitor (3) Urinary tract infection Conclusion/Plan: continue antibiotics Rocephin weak diagnosis of UTI, pt has Rocephin for PNA, continue follow up UA (4) DM2 (diabetes mellitus, type 2) Conclusion/Plan: A1C 6.1, good controlled continue slide scale, ACHS hx of DM2 check A1C, follow up slide scale, ACHS (5) Chronic anemia Conclusion/Plan: HGB 9.1 after transfusion of 2 units of blood continue monitor if GI bleeding, continue ferrous sulf chronic anemia, Hx of breast cancer and colon cancer. anemia study, follow up MCV 80.2, seems microcytic anemia, start on Ferrous sulf H&H, follow as needed for blood transfusion pt denies GI bleed, order once Occult blood stool test (6) Hx of coronary artery disease Conclusion/Plan: stable, pt denies chest pain. first Troponin 0.08, order second one, follow up. EKG unremarkable for acute CAD on tele monitor vital monitor (7) HTN (hypertension) Conclusion/Plan: stable, resume home meds (8) abnormal EKG pt denies chest pain, hemodynemically stable serial troponin decrease. pt is on tele continue closely monitor, PRN EKG, will repeat EKG as clinic needed order ECHO (3) Urinary tract infection Qualifiers: Urinary tract infection type: acute cystitis Hematuria presence: without hematuria Qualified Code(s): N30.00 - Acute cystitis without hematuria
[2017-10-17] MEDS ORDERED: CALCIUM GLUCONATE 1,000 MG in SODIUM CHLORIDE 0.9% 50 ML IV ONE (12:00)
[2017-10-17] MEDS ORDERED: MAGNESIUM SULFATE 1 GM in SODIUM CHLORIDE 0.9% 50 ML IV ONE (13:00)
[2017-10-17 19:44] LABS: HGB - HEMOGLOBIN 9.3 g/dL (12.0-16.0)
[2017-10-17] MEDS: PRAVASTATIN 10 MG TABLET PO SCH (21:18)
[2017-10-17] MEDS: HYDROcod/ACETAM 5/325 MG TABLET PO PRN (21:25)
[2017-10-17] MEDS: KETOROLAC 15 MG/ML VIAL IVP PRN (21:25)
[2017-10-18] MEDS: ACETAMINOPHEN 325 MG TABLET PO PRN ×3 (04:25→19:35)
[2017-10-18 05:31] LABS: BASOPHILS % (AUTO) 0.4 %; EOSINOPHILS # (AUTO) 0.5 10^3/uL (0.0-0.7); EOSINOPHILS % (AUTO) 5.1 %; HGB - HEMOGLOBIN 9.5 g/dL (12.0-16.0); LYMPHOCYTES # (AUTO) 1.3 10^3/uL (1.5-3.5); LYMPHOCYTES % (AUTO) 13.4 %; MEAN CORPUSCULAR HEMOGLOBIN 25.6 pg (27.0-31.0); MEAN CORPUSCULAR HGB CONC 31.8 g/dL (32.0-36.0); MEAN CORPUSCULAR VOLUME 80.6 fL (81.0-99.0); MONOCYTES # (AUTO) 1.1 10^3/uL (0.0-1.0); MONOCYTES % (AUTO) 11.2 %; NEUTROPHILS # (AUTO) 6.7 10^3/uL (1.5-6.6); NEUTROPHILS % (AUTO) 69.9 %; PLT - PLATELET COUNT 267 10^3/uL (130-450); RED BLOOD COUNT 3.72 10^6/uL (4.20-5.40); RED CELL DISTRIBUTION WIDTH 17.1 % (12.0-15.0); WHITE BLOOD COUNT 9.6 x10^3/uL (4.8-10.8)
[2017-10-18 05:46] LABS: ALBUMIN 2.8 g/dL (3.2-5.5); BILIRUBIN,TOTAL 0.7 mg/dL (0.2-1.0); CALCIUM 7.8 mg/dL (8.5-10.3); CREATININE 0.8 mg/dL (0.4-1.0); TOTAL PROTEIN 5.7 g/dL (6.7-8.2)
[2017-10-18] MEDS ORDERED: ALENDRONATE 70 MG TABLET PO SCH (07:00)
[2017-10-18] MEDS: INSULIN ASPART 300 UNIT/3 ML PEN SUBQ SCH (07:52)
[2017-10-18] MEDS: ONDANSETRON 4 MG/2 ML VIAL IVP PRN ×2 (08:31→16:37)
[2017-10-18] MEDS: SODIUM CHLORIDE FLUSH 0.9% 10 ML SYRINGE IVP SCH ×2 (08:32→16:36)
[2017-10-18] MEDS: KETOROLAC 15 MG/ML VIAL IVP PRN ×2 (08:36→18:52)
[2017-10-18] MEDS: SODIUM CHLORIDE FLUSH 0.9% 10 ML SYRINGE IVP PRN ×2 (08:36→18:56)
[2017-10-18] MEDS: cefTRIAXone 1 GM in SODIUM CHLORIDE 0.9% MINIBAG 100 ML IV SCH (09:58)
[2017-10-18] MEDS: FAMOTIDINE 20 MG TABLET PO SCH (10:02)
[2017-10-18] MEDS: CITALOPRAM 10 MG TABLET PO SCH (10:02)
[2017-10-18] MEDS: guaiFENesin 600 MG TABLET PO SCH ×2 (10:03→22:09)
[2017-10-18] MEDS: FERROUS SULFATE 325 MG TABLET PO SCH (10:03)
[2017-10-18] MEDS: METOPROLOL TARTRATE 25 MG TABLET PO SCH ×2 (10:03→22:06)
[2017-10-18] MEDS: ENOXAPARIN 40 MG/0.4 ML SYRINGE SUBQ SCH (10:04)
[2017-10-18] MEDS: busPIRone 5 MG TABLET PO SCH ×2 (10:04→22:05)
[2017-10-18] MEDS: POLYETHYLENE GLYCOL 3350 17 GM PACKET PO SCH (10:05)
[2017-10-18] MEDS: AZITHROMYCIN INJ 500 MG in SODIUM CHLORIDE 0.9% 250 ML IV SCH (10:49)
--- NOTE | 2017-10-18 12:07 | PROVIDER PROGRESS NOTE ---
Subjective - Prog Note Date Prog Note Date: 10/18/17 Prog Note Time: 12:07 - Subjective Pt reports feeling: No change Subjective: The patient complains of ongoing N/V and has not been able to tolerate oral intake today. She denies chest pain, dizziness, a new cough diarrhea, or changes with vision or hearing. Current Medications - Current Medications Current Medications: Active Medications Acetaminophen (Tylenol) 650 mg PO Q4HR PRN PRN Reason: Pain 1 to 4 Last Admin: 10/18/17 09:13 Dose: 650 mg Acetaminophen/Hydrocodone Bitart (Seminary 5/325) 1 tab PO Q4HR PRN PRN Reason: PAIN Last Admin: 10/17/17 21:25 Dose: 1 tab Albuterol () 2.5 mg INH RTQ4H PRN PRN Reason: Wheezing Last Admin: 10/17/17 10:53 Dose: 2.5 mg Albuterol/Ipratropium (Duoneb) 3 ml INH Q4HR PRN PRN Reason: Wheezing Last Admin: 10/16/17 17:00 Dose: 3 ml Alendronate Sodium (Fosamax) 70 mg PO Sa@0700 [facility] Buspirone HCl (Buspar) 15 mg PO BID [facility] Last Admin: 10/18/17 10:04 Dose: 15 mg Calcium Carbonate/Glycine (Tums) 500 mg PO QID PRN PRN Reason: Nausea / Vomiting Citalopram Hydrobromide (Celexa) 20 mg PO DAILY [facility] Last Admin: 10/18/17 10:02 Dose: 20 mg Enoxaparin Sodium (Lovenox) 40 mg SUBQ DAILY [facility] Last Admin: 10/18/17 10:04 Dose: 40 mg Guaifenesin (Mucinex) 600 mg PO BID [facility] Last Admin: 10/18/17 10:03 Dose: 600 mg Ceftriaxone Sodium 1 gm/ (Sodium Chloride) 100 mls @ 200 mls/hr IV DAILY [facility] Last Infusion: 10/18/17 10:50 Dose: Infused Azithromycin 500 mg/ Sodium (Chloride) 250 mls @ 250 mls/hr IV DAILY [facility] Last Infusion: 10/18/17 13:29 Dose: Infused Insulin Glargine (Lantus Solostar) 5 unit SUBQ QPM [facility] Ketorolac Tromethamine (Toradol Inj) 15 mg IVP Q6HR PRN PRN Reason: PAIN Stop: 10/22/17 20:52 Last Admin: 10/18/17 18:52 Dose: 15 mg Metoprolol Tartrate (Lopressor) 25 mg PO BID [facility] Last Admin: 10/18/17 10:03 Dose: 25 mg Ondansetron HCl (Zofran Inj) 4 mg IVP Q6HR PRN PRN Reason: Nausea / Vomiting Last Admin: 10/18/17 16:37 Dose: 4 mg Pantoprazole Sodium (Protonix) 40 mg PO BIDAC [facility] Last Admin: 10/18/17 18:39 Dose: Not Given Polyethylene Glycol (Miralax) 17 gm PO DAILY [facility] Last Admin: 10/18/17 10:05 Dose: Not Given Pravastatin Sodium (Pravachol) 20 mg PO QPM [facility] Last Admin: 10/17/17 21:18 Dose: 20 mg Prochlorperazine Maleate (Compazine Supp) 25 mg ME TID PRN PRN Reason: Nausea / Vomiting Last Admin: 10/18/17 18:48 Dose: 25 mg Sodium Chloride (Normal Saline Flush 0.9%) 10 ml IVP PRN PRN PRN Reason: NEEDED PER PROVIDER ORDERS Last Admin: 10/18/17 18:56 Dose: 10 ml Sodium Chloride (Normal Saline Flush 0.9%) 10 ml IVP 0100,0900,1700 [facility] Last Admin: 10/18/17 16:36 Dose: 10 ml Spironolactone (Aldactone) 25 mg PO DAILY [facility] Last Admin: 10/18/17 14:29 Dose: Not Given Alendronate Sodium 70 mg PO Q7D 07/14/15 Metoprolol Tartrate [Lopressor] 25 mg PO BID 07/14/15 Omeprazole 40 mg PO DAILY 07/14/15 Pravastatin [Pravachol] 20 mg PO DAILY 08/04/15 busPIRone [Buspar] 15 mg PO BID 08/04/15 Aspirin [Adult Low Dose Aspirin EC] 81 mg PO DAILY 10/06/15 [place]-3/Dha/Epa/Fish Oil [Fish Oil Conc 1,000 mg Softgel] 2,000 mg PO DAILY Citalopram [CeleXA] 20 mg PO DAILY 09/13/16 Cyanocobalamin (Vitamin B-12) [Vitamin B-12 (500 mcg sublingual)] 500 mcg SL DAILY 10/16/17 Garlic 1,000 mg PO DAILY 10/16/17 Multivit-Min/Folic Acid/Vit K1 [Multi For Her 50 Plus Softgel] 1 each PO DAILY 10/16/17 Niacin (Inositol Niacinate) [Niacin 500 mg Capsule] 500 mg PO BID 10/16/17 Metformin HCl 100 mg PO BIDWM 10/17/17 hydroCHLOROthiazide [Hydrochlorothiazide] 25 mg PO DAILY 10/17/17 Objective - Vital Signs/Intake & Output Reviewed Vital Signs: Yes Vital Signs: Vital Signs x48h Temp Pulse Pulse Resp BP Pulse Ox 10/18/17 09:45 71 16 10/18/17 08:29 37.4 C 71 18 170/82 H 94 10/18/17 05:00 37.5 C 76 18 143/58 H 95 Intake & Output: Intake & Output 10/15/17 10/16/17 10/17/17 10/18/17 23:59 23:59 23:59 23:59 Intake Total 1944.395 450 Balance 1944.395 450 - Objective General Appearance: positive: No acute distress, Alert Eyes Bilateral: positive: PERRL Eyes: OU Abnormal EOM, OU Other (The patient displays "tics" during her exam, with rapid blinking, etc.) ENT: positive: ENT inspection nml, Pharynx nml, Dry mucous membranes Neck: positive: Nml inspection, Thyroid nml, No JVD, Stiff neck Respiratory: positive: Chest non-tender, No respiratory distress, Other ( diminshed, through out.) Cardiovascular: positive: Regular rate & rhythm, Systolic murmur, Decreased pulse(s) Peripheral Pulses: 1+ Radial (R), 1+ Radial (L) Abdomen: positive: Non-tender, Nml bowel sounds, Other (rounded, soft.) Skin: positive: No rash, Warm, Dry, Pallor Extremities: positive: Non-tender, Full ROM, Pedal edema, Joint swelling, Other (dependent BLE) Neurologic/Psychiatric: positive: Oriented x3, CN's nml (2-12), Motor nml, Sensation nml, Weakness, Depressed mood/affect, Other (facial tics- chronic. Involves rapid blinking.) - Lab Results Fish Bones: 10/18/17 05:10 10/18/17 05:10 Other Labs: Lab Results x24hrs 10/18/17 10/18/17 10/18/17 Range/Units 11:47 07:37 05:10 WBC (4.8-10.8) x10^3/uL RBC (4.20-5.40) 10^6/uL Hgb (12.0-16.0) g/dL Hct (37.0-47.0) % MCV (81.0-99.0) fL MCH (27.0-31.0) pg MCHC (32.0-36.0) g/dL RDW (12.0-15.0) % Plt Count (130-450) 10^3/uL MPV (7.9-10.8) fL Neut # (1.5-6.6) 10^3/uL Lymph # (1.5-3.5) 10^3/uL [place] # (0.0-1.0) 10^3/uL Eos # (0.0-0.7) 10^3/uL Baso # (0.0-0.1) 10^3/uL Absolute Nucleated RBC x10^3/uL Nucleated RBC % /100WBC Sodium 138 (135-145) mmol/L Potassium 3.4 L (3.5-5.0) mmol/L Chloride 105 (101-111) mmol/L Carbon Dioxide 23 (21-32) mmol/L Anion Gap 10.0 (6-13) BUN 16 (6-20) mg/dL Creatinine 0.8 (0.4-1.0) mg/dL Estimated GFR (MDRD) 70 L (>89) Glucose 112 H (70-100) mg/dL POC Whole Bld Glucose 106 H 118 H (70 - 100) mg/dL Calcium 7.8 L (8.5-10.3) mg/dL Total Bilirubin 0.7 (0.2-1.0) mg/dL AST 22 (10-42) IU/L ALT 18 (10-60) IU/L Alkaline Phosphatase 39 L (42-121) IU/L Total Protein 5.7 L (6.7-8.2) g/dL Albumin 2.8 L (3.2-5.5) g/dL Globulin 2.9 (2.1-4.2) g/dL Albumin/Globulin Ratio 1.0 (1.0-2.2) 10/18/17 10/17/17 10/17/17 Range/Units 05:10 20:44 19:35 WBC 9.6 (4.8-10.8) x10^3/uL RBC 3.72 L (4.20-5.40) 10^6/uL Hgb 9.5 L 9.3 L (12.0-16.0) g/dL Hct 30.0 L 29.2 L (37.0-47.0) % MCV 80.6 L (81.0-99.0) fL MCH 25.6 L (27.0-31.0) pg MCHC 31.8 L (32.0-36.0) g/dL RDW 17.1 H (12.0-15.0) % Plt Count 267 (130-450) 10^3/uL MPV 8.0 (7.9-10.8) fL Neut # 6.7 H (1.5-6.6) 10^3/uL Lymph # 1.3 L (1.5-3.5) 10^3/uL [place] # 1.1 H (0.0-1.0) 10^3/uL Eos # 0.5 (0.0-0.7) 10^3/uL Baso # 0.0 (0.0-0.1) 10^3/uL Absolute Nucleated RBC 0.01 x10^3/uL Nucleated RBC % 0.1 /100WBC Sodium (135-145) mmol/L Potassium (3.5-5.0) mmol/L Chloride (101-111) mmol/L Carbon Dioxide (21-32) mmol/L Anion Gap (6-13) BUN (6-20) mg/dL Creatinine (0.4-1.0) mg/dL Estimated GFR (MDRD) (>89) Glucose (70-100) mg/dL POC Whole Bld Glucose 108 H (70 - 100) mg/dL Calcium (8.5-10.3) mg/dL Total Bilirubin (0.2-1.0) mg/dL AST (10-42) IU/L ALT (10-60) IU/L Alkaline Phosphatase (42-121) IU/L Total Protein (6.7-8.2) g/dL Albumin (3.2-5.5) g/dL Globulin (2.1-4.2) g/dL Albumin/Globulin Ratio (1.0-2.2) 10/17/17 Range/Units 16:38 WBC (4.8-10.8) x10^3/uL RBC (4.20-5.40) 10^6/uL Hgb (12.0-16.0) g/dL Hct (37.0-47.0) % MCV (81.0-99.0) fL MCH (27.0-31.0) pg MCHC (32.0-36.0) g/dL RDW (12.0-15.0) % Plt Count (130-450) 10^3/uL MPV (7.9-10.8) fL Neut # (1.5-6.6) 10^3/uL Lymph # (1.5-3.5) 10^3/uL [place] # (0.0-1.0) 10^3/uL Eos # (0.0-0.7) 10^3/uL Baso # (0.0-0.1) 10^3/uL Absolute Nucleated RBC x10^3/uL Nucleated RBC % /100WBC Sodium (135-145) mmol/L Potassium (3.5-5.0) mmol/L Chloride (101-111) mmol/L Carbon Dioxide (21-32) mmol/L Anion Gap (6-13) BUN (6-20) mg/dL Creatinine (0.4-1.0) mg/dL Estimated GFR (MDRD) (>89) Glucose (70-100) mg/dL POC Whole Bld Glucose 97 (70 - 100) mg/dL Calcium (8.5-10.3) mg/dL Total Bilirubin (0.2-1.0) mg/dL AST (10-42) IU/L ALT (10-60) IU/L Alkaline Phosphatase (42-121) IU/L Total Protein (6.7-8.2) g/dL Albumin (3.2-5.5) g/dL Globulin (2.1-4.2) g/dL Albumin/Globulin Ratio (1.0-2.2) - Diagnostic Imaging Diagnostic Imaging Results: positive: Prelim report reviewed, Final report reviewed Diagnostic Imaging Comments: CT abdomen/pelvis ordered this evening due to ongoing N/V with contrast and this is pending. ABX Reporting Has patient been on IV antibiotics over the past 48 hours?: Yes Assessment/Plan - Problem List (1) Iron deficiency anemia Impression: The iron supplement that was newly prescribed on this admit, is now on hold due to ongoing N/V today. Her last H/H was 9.5 and 30.0, which has been stable during this hospital stay. A guiac was completed and negative. Plan: Continue to monitor labs, watch for signs of bleeding and await CT abdomen/pelvis results. Qualifiers: Iron deficiency anemia type: unspecified iron deficiency Qualified Code(s) : D50.9 - Iron deficiency anemia, unspecified (2) Pulmonary hypertension Impression: The patient had an echocardiogram today that shows moderate pulmonary HTN with an RVSP at rest of 60mmHg (normal is 25-30). She denies pulmonary emboli, recent PNA, DANA or a tobacco history when asked. Spironolactone is indicated and has been started. This will take the place of her home HCTZ-which is now on hold. Plan: Continue to monitor B/P, and Spironolactone PO daily. (3) Nausea and vomiting Impression: The patient was just started on an iron supplement due to recent iron studies. She has anorexia and admits to not being hungry since being admitted. Plan: Stop iron pills and abdominal/pelvis CT with contrast is ordered. (4) HTN (hypertension) Impression: The patient has a known history of this and takes Metoprolol BID at home. Blood pressure today was 143/58 with HR in the 70's. Plan: Continue to monitor and continue home medication. Qualifiers: Hypertension type: essential hypertension Qualified Code(s): I10 - Essential (primary) hypertension (5) Personal history of breast cancer Impression: The patient is status post bilateral mastectomy, for several years now without revision. There have been no issues since, but worth mentioning as part of N/V work up. Plan: Continue to work up current illness and symptoms.
[2017-10-18] MEDS ORDERED: CALCIUM CARBONATE CHEW 500 MG TABLET PO PRN (12:12)
[2017-10-18] MEDS ORDERED: PANTOPRAZOLE 40 MG TABLET PO SCH (13:00)
[2017-10-18] MEDS: SPIRONOLACTONE 25 MG TABLET PO SCH (14:29)
[2017-10-18] MEDS ORDERED: PROCHLORPERAZINE 25 MG SUPP PR PRN (18:24)
[2017-10-18] MEDS ORDERED: IOPAMIDOL-300 100 ML VIAL ONE (18:38)
[2017-10-18] MEDS ORDERED: IOPAMIDOL-300 50 ML VIAL ONE (18:38)
[2017-10-18] MEDS: PANTOPRAZOLE 40 MG TABLET PO SCH (18:39)
[2017-10-18] MEDS ORDERED: INSULIN GLARGINE 300 UNIT/3 ML PEN SUBQ SCH (21:00)
[2017-10-18] MEDS ORDERED: IOPAMIDOL-300 50 ML VIAL PO ONE (21:05)
[2017-10-18] MEDS ORDERED: IOPAMIDOL-300 100 ML VIAL IVP ONE (21:07)
[2017-10-18] MEDS: PRAVASTATIN 10 MG TABLET PO SCH (22:06)
[2017-10-18] MEDS: HYDROcod/ACETAM 5/325 MG TABLET PO PRN (22:48)
--- NOTE | 2017-10-18 23:13 | CT Preliminary Report ---
Exam: CT ABDOMEN/PELVIS W/ IMPRESSION: 1. No acute inflammatory or obstructive process seen in the abdomen or pelvis. 2. Moderate stool burden with features of chronic constipation. 3. Post cholecystectomy and hysterectomy. 4. Large anterior pelvic wall fat and small bowel containing hernia but without acute palpitations se en. 5. Moderate hiatal hernia. 6. Moderate atherosclerotic disease of the aorta and branches. 7. Moderate left lower lobe atelectasis RADIA SITE ID: [id number]
--- NOTE | 2017-10-18 23:24 | CT Report ---
EXAM: CT ABDOMEN AND PELVIS EXAM DATE: 10/18/2017 08:44 PM. CLINICAL HISTORY: Ongoing nausea/vomiting. COMPARISONS: 11/04/2009. TECHNIQUE: Routine helical CT imaging was performed through the abdomen and pelvis. IV contrast: Yes. Enteric contrast: Yes. Reconstructions: Coronal and sagittal. In accordance with CT protocol optimization, one or more of the following dose reduction techniques w ere utilized for this exam: automated exposure control, adjustment of mA and/or KV based on patient s ize, or use of iterative reconstructive technique. FINDINGS: Lung Bases: Moderate hiatal hernia. Trace pleural effusions. Moderate left lower lobe atelectasis. Se alex coronary calcifications. Borderline heart size. Liver: Unremarkable. No suspicious masses. Gallbladder/Bile Ducts: Unremarkable post cholecystectomy. Spleen: Unremarkable. Pancreas: Unremarkable. Adrenal Glands: No suspicious abnormality with chronic bilateral adrenal adenomas noted. Kidneys: Small cysts bilaterally. No suspicious masses or hydronephrosis. Peritoneal Cavity/Bowel: No bowel obstruction or inflammatory process seen. No free air or significan t free fluid. No masses or adenopathy. The appendix is not seen but there is no evidence of appendici tis. Moderate stool burden with colonic redundancy. Large anterior pelvic wall fat and bowel-containing hernia without apparent complication. Hernia defe ct measures approximately 5 x 3.5 cm with a larger 16 x 6 x 11 cm hernia sac Pelvic Organs: Post-hysterectomy with no adnexal masses seen. The bladder appears within normal limit s. Vasculature: Moderate atherosclerotic disease of the aorta and branches. No aneurysm seen. Bones: No significant abnormality. Other: None. IMPRESSION: 1. No acute inflammatory or obstructive process seen in the abdomen or pelvis. 2. Moderate stool burden with features of chronic constipation. 3. Post-cholecystectomy and hysterectomy. 4. Large anterior pelvic wall fat and small bowel containing hernia but without acute complications s een. 5. Moderate hiatal hernia. 6. Moderate atherosclerotic disease of the aorta and branches. 7. Moderate left lower lobe atelectasis. [facility] Referring Provider Line: [phone] SITE ID: [id number]
[2017-10-19] MEDS: SODIUM CHLORIDE FLUSH 0.9% 10 ML SYRINGE IVP SCH ×2 (01:10→09:50)
[2017-10-19] MEDS: IPRATROPIUM/ALBUTEROL 3 ML NEB INH PRN (01:19)
[2017-10-19 05:43] VITALS: BP 129/70
[2017-10-19 05:45] LABS: BASOPHILS # (AUTO) 0.1 10^3/uL (0.0-0.1); BASOPHILS % (AUTO) 0.7 %; EOSINOPHILS # (AUTO) 0.4 10^3/uL (0.0-0.7); EOSINOPHILS % (AUTO) 5.2 %; HGB - HEMOGLOBIN 9.1 g/dL (12.0-16.0); LYMPHOCYTES # (AUTO) 1.6 10^3/uL (1.5-3.5); LYMPHOCYTES % (AUTO) 19.2 %; MEAN CORPUSCULAR HEMOGLOBIN 26.2 pg (27.0-31.0); MEAN CORPUSCULAR HGB CONC 32.4 g/dL (32.0-36.0); MONOCYTES # (AUTO) 1.1 10^3/uL (0.0-1.0); MONOCYTES % (AUTO) 13.5 %; NEUTROPHILS # (AUTO) 5.1 10^3/uL (1.5-6.6); NEUTROPHILS % (AUTO) 61.4 %; PLT - PLATELET COUNT 267 10^3/uL (130-450); RED BLOOD COUNT 3.46 10^6/uL (4.20-5.40); RED CELL DISTRIBUTION WIDTH 17.2 % (12.0-15.0); WHITE BLOOD COUNT 8.3 x10^3/uL (4.8-10.8)
[2017-10-19 05:58] LABS: ALBUMIN 2.7 g/dL (3.2-5.5); BILIRUBIN,TOTAL 0.8 mg/dL (0.2-1.0); CALCIUM 7.9 mg/dL (8.5-10.3); CREATININE 0.8 mg/dL (0.4-1.0); MAGNESIUM 1.7 mg/dL (1.7-2.8); TOTAL PROTEIN 5.4 g/dL (6.7-8.2)
[2017-10-19] MEDS: PANTOPRAZOLE 40 MG TABLET PO SCH (06:36)
[2017-10-19] MEDS: POLYETHYLENE GLYCOL 3350 17 GM PACKET PO SCH ×2 (07:20→09:59)
[2017-10-19] MEDS ORDERED: SENNA 8.6 MG TABLET PO SCH (09:00)
[2017-10-19] MEDS: KETOROLAC 15 MG/ML VIAL IVP PRN (09:50)
[2017-10-19] MEDS: cefTRIAXone 1 GM in SODIUM CHLORIDE 0.9% MINIBAG 100 ML IV SCH (09:51)
[2017-10-19] MEDS: ENOXAPARIN 40 MG/0.4 ML SYRINGE SUBQ SCH (09:59)
[2017-10-19] MEDS: METOPROLOL TARTRATE 25 MG TABLET PO SCH (10:00)
[2017-10-19] MEDS: CITALOPRAM 10 MG TABLET PO SCH (10:00)
[2017-10-19] MEDS: guaiFENesin 600 MG TABLET PO SCH (10:00)
[2017-10-19] MEDS: busPIRone 5 MG TABLET PO SCH (10:01)
[2017-10-19] MEDS: SPIRONOLACTONE 25 MG TABLET PO SCH (10:01)
[2017-10-19] MEDS: AZITHROMYCIN INJ 500 MG in SODIUM CHLORIDE 0.9% 250 ML IV SCH (10:44)
--- NOTE | 2017-10-19 10:50 | Discharge Plan ---
Discharge Plan Disposition: Home, Self Care Condition: Good Prescriptions: Azithromycin [Zithromax Tri-Jerson] 500 mg PO DAILY 10 Days #10 tablet Ferrous Sulfate 325 mg PO BID #60 tablet guaiFENesin [Mucinex] 600 mg PO BID #60 tablet Saccharomyces Boulardii [Florastor] 250 mg PO BID #60 capsule Spironolactone [Aldactone] 25 mg PO DAILY #30 tablet Diet: Regular Activity Restrictions: No Restrictions Shower Restrictions: No Driving Restrictions: No Weight Bearing: Full Weight Additional Instructions or Follow Up instructions: You were admitted for a suspected mild pneumonia verses UTI. The urine sample was negative when cultured, but we suspect that you had signs of early pneumonia given your complaints of green sputum when you were admitted. You were given antibiotics which are changed to an oral form and to be continued at home. A CT scan of your abdomen and pelvis were completed due to ongoing nausea and vomiting, which showed nothing concerning and we believe that your nausea was caused by bowel overload and the hiatal hernia. You should resume your normal proton pump inhibitor for this at home, with a daily bowel program that may include over the counter mirralax/prune juice or Metamucil. We found that your red blood cell counts were low, and iron studies showed that you are iron deficient. You should take twice a day iron tabs, and get your blood re-checked in about a month. You had an echocardiogram that showed that you have pulmonary hypertension ( high right-sided heart pressures), so we recommend that you continue on Spironolactone that was started in the hospital, and STOP the hydrochlorathiazide. Please see your PCP within one week of this stay. Rest when you are tired. No Smoking: If you smoke, Please STOP! Call for help. Follow-up with: Billie Gerber PA-C [Primary Care Provider] -
--- NOTE | 2017-10-19 11:01 | DISCHARGE SUMMARY ---
Discharge Summary Admit Date: 10/16/17 Discharge Date: 10/19/17 Discharging Provider: IMAN Romero Primary Care Provider: Billie Gerber Code Status: Attempt Resuscitation Condition at Discharge: Good Discharge Disposition: 01 Home, Self Care - DIAGNOSES Admission Diagnoses: Cough (R05) Fever, unspecified (R50.9) UTI (urinary tract infection) (N39.0) Atherosclerotic heart disease of eek coronary artery without angina pectoris (I25.10) Unspecified asthma, uncomplicated (J45.909) Type 2 diabetes mellitus without complications (E11.9) Anemia, unspecified (D64.9) Discharge Diagnoses with Status of Each Condition: UTI (urinary tract infection) (N39.0) ruled out. Iron deficiency anemia (D50.9) -chronic, stable. Patient is to continue iron supplement. Nausea and vomiting (R11.2) -resolved. Hypertension (I10) -chronic, stable, medication changes. Personal history of breast cancer (Z85.3) -chronic, stable. Pulmonary hypertension (I27.20)- new on this admit, medication changes. Pneumonia- new on this admit, care to continue using oral antibiotics. - HPI History of Present Illness: Saima Cary is 72-yrs-old female with a past medical history of HTN, Hyperlipidemia, CAD with coronary stent, ND, Asthma, DM2, GERD, Colon polyps, cholelithiasis, depression, anxiety, osteoarthritis, fibromyalgia, RA, osteopenia, chronic back pain, breast cancer-status post of bilateral mastectomy. She presented to the ED with complaints of fever and a productive cough with greenish sputum for the past two days. The patient is found to be a poor historian, as she cannot recall certain details about her own health. She claims that she is living with her young sister in [place] who is on TID weekly dialysis and she drives her sister to those sessions. She denies chest pain, shortness of breathing, or dysuria. A chest x-ray was unremarkable. Lab results show a slightly elevated WBC. A UA shows a possible UTI. The patient was mildly febrile with a temp max of 38.1 C noted in the ED. She will be admitted inpatient for treatment of her UTI, and early PNA given her presenting symptoms and elevated WBC count. - HOSPITAL COURSE Hospital Course: The following diagnoses were prevalent during this hospital stay: (1) Iron deficiency anemia The iron supplement that was newly prescribed on this admit, is now on hold due to ongoing N/V today. Her last H/H was 9.5 and 30.0, which has been stable during this hospital stay. A guiac was completed and negative. The patient's labs were monitored, she was watched for signs of bleeding and an abdominal/ pelvis CT was completed and showed no evidence of malignancy or cause of anemia. (2) Pulmonary hypertension The patient had an echocardiogram today that shows moderate pulmonary HTN with an RVSP at rest of 60mmHg (normal is 25-30). She denies pulmonary emboli, recent PNA, DANA or a tobacco history when asked. Spironolactone is indicated and has been started. This will take the place of her home HCTZ-which is now on hold. Plan: Continue to monitor B/P, and Spironolactone PO daily. (3) Nausea and vomiting The patient was just started on an iron supplement due to recent iron studies. She has anorexia and admits to not being hungry since being admitted. Her new iron pills were placed on hold and results of abdominal/pelvis CT with contrast showed an over abundance of stool, and a hiatal hernia which was the likely contributor to her ongoing N/V. Laxatives were given and she was able to have good stool results. (4) HTN (hypertension) The patient has a known history of this and takes Metoprolol BID at home. Blood pressure today was 129/70 with HR in the 70's. The patient was continued on her home medications. A day before discharge the patient was started on Spironolactone, so the HCTZ was discontinued in it's place. (5) Personal history of breast cancer The patient is status post bilateral mastectomy, for several years now without revision. There have been no issues since, but worth mentioning as part of N/V work up. This is considered to be stable and of no concern during this hospital stay. (6) UTI The urine culture had no growth, and the patient denied symptoms of dysuria. (7) PNA A CT of the abdomen/pelvis showed LLL atelectasis. The patient was treated with IV antibiotics that were changed to oral upon discharge. The patient was given nebulizer treatments, performed incentive spirometry and her productive cough with green sputum slowly resolved by the time of discharge. A sputum sample was obtained and grew e. coli, hao albicans and MSSA. Final sensitivites show treatment using tobramycin, and the patient was given azithromycin to take at home. Only one of 2 blood cultures are positive, so I cannot conclude that she had bacteremia, especially since she was clinically improving. Disposition: The patient was in stable condition at the time of discharge. - ALLERGIES Allergies/Adverse Reactions: Allergies Allergy/AdvReac Type Severity Reaction Status Date / Time lactose Allergy Intermediate Rash Verified 10/16/17 17:55 atorvastatin calcium * Allergy Rash Verified 10/16/17 13:13 [From Lipitor] mushroom Allergy Anaphylaxis Verified 10/16/17 13:13 cat gut AdvReac Intermediate Unknown Uncoded 10/16/17 13:13 - MEDICATIONS Home Medications: Ambulatory Orders Medication Instructions Recorded Confirmed Alendronate Sodium 70 mg PO Q7D 07/14/15 10/16/17 Metoprolol Tartrate [Lopressor] 25 mg PO BID 07/14/15 10/16/17 Omeprazole 40 mg PO DAILY 07/14/15 10/16/17 Pravastatin [Pravachol] 20 mg PO DAILY 08/04/15 10/16/17 busPIRone [Buspar] 15 mg PO BID 08/04/15 10/16/17 Aspirin [Adult Low Dose Aspirin EC] 81 mg PO DAILY 10/06/15 10/16/17 [place]-3/Dha/Epa/Fish Oil [Fish Oil 2,000 mg PO DAILY 10/06/15 10/16/17 Conc 1,000 mg Softgel] Citalopram [CeleXA] 20 mg PO DAILY 09/13/16 10/16/17 Cyanocobalamin (Vitamin B-12) 500 mcg SL DAILY 10/16/17 10/16/17 [Vitamin B-12 (500 mcg sublingual)] Garlic 1,000 mg PO DAILY 10/16/17 10/16/17 Multivit-Min/Folic Acid/Vit K1 1 each PO DAILY 10/16/17 10/16/17 [Multi For Her 50 Plus Softgel] Niacin (Inositol Niacinate) 500 mg PO BID 10/16/17 10/16/17 [Niacin 500 mg Capsule] Metformin HCl 100 mg PO BIDWM 10/17/17 10/17/17 Azithromycin [Zithromax Tri-Jerson] 500 mg PO DAILY 10 Days #10 tablet 10/19/17 Ferrous Sulfate 325 mg PO BID #60 tablet 10/19/17 Saccharomyces Boulardii [Florastor] 250 mg PO BID #60 capsule 10/19/17 Spironolactone [Aldactone] 25 mg PO DAILY #30 tablet 10/19/17 guaiFENesin [Mucinex] 600 mg PO BID #60 tablet 10/19/17 - PHYSICAL EXAM AT DISCHARGE General Appearance: positive: No acute distress, Alert Eyes Bilateral: positive: Normal inspection, PERRL, Other (chronic tics, affecting her bilateral eyes. Blinking) ENT: positive: ENT inspection nml, Pharynx nml, No signs of dehydration Neck: positive: Nml inspection, Thyroid nml, No JVD, Trachea midline, Stiff neck Respiratory: positive: Chest non-tender, No respiratory distress, Breath sounds nml, Other (diminished) Cardiovascular: positive: Regular rate & rhythm, Systolic murmur, Decreased pulse(s) Peripheral Pulses: positive: 1+ Abdomen: positive: Non-tender, No organomegaly, Nml bowel sounds, No distention , Other (rounded, soft) Back: positive: Nml inspection Skin: positive: No rash, Warm, Dry, Pallor Extremities: positive: Non-tender, Full ROM, Nml appearance, Pedal edema ( chronic, dependent) Neurologic/Psychiatric: positive: Oriented x3, CN's nml (2-12), Motor nml, Sensation nml, Weakness, Depressed mood/affect Reflexes: Bicep (R): 3+, Bicep (L): 3+ - LABS Result Diagrams: 10/19/17 05:00 10/19/17 05:00 - DIAGNOSTIC IMAGING Diagnostic Imaging Results: Final report reviewed Diagnostic Imaging Results Comments: Abdominal/pelvis CT 10/18/17 IMPRESSION: 1. No acute inflammatory or obstructive process seen in the abdomen or pelvis. 2. Moderate stool burden with features of chronic constipation. 3. Post-cholecystectomy and hysterectomy. 4. Large anterior pelvic wall fat and small bowel containing hernia but without acute complications seen. 5. Moderate hiatal hernia. 6. Moderate atherosclerotic disease of the aorta and branches. 7. Moderate left lower lobe atelectasis. ECHOCARDIOGRAM: Preliminary- Mild concentric LV hypertrophy with an estimated EF of 65-70%. Grade II diastolic dysfunction. The LV septal wall is flattened in diastole, which represents an enlarged RV. Moderate pulmonary HTN with an RVSP at rest of 60mmHg. - FOLLOW UP Follow Up: Disposition: 01 Home, Self Care Condition: Good Prescriptions: Azithromycin [Zithromax Tri-Jerson] 500 mg PO DAILY 10 Days #10 tablet Ferrous Sulfate 325 mg PO BID #60 tablet guaiFENesin [Mucinex] 600 mg PO BID #60 tablet Saccharomyces Boulardii [Florastor] 250 mg PO BID #60 capsule Spironolactone [Aldactone] 25 mg PO DAILY #30 tablet Diet: Regular Activity Restrictions: No Restrictions Shower Restrictions: No Driving Restrictions: No Weight Bearing: Full Weight Additional Instructions or Follow Up instructions: You were admitted for a suspected mild pneumonia verses UTI. The urine sample was negative when cultured, but we suspect that you had signs of early pneumonia given your complaints of green sputum when you were admitted. Final sputum culture results are now + for MSSA, e. coli and hao albicans. The antibiotic of Azithromycin may need to be changed based on these results. You should call your PCP if you are feeling unwell. You were given antibiotics which are changed to an oral form and to be continued at home. A CT scan of your abdomen and pelvis were completed due to ongoing nausea and vomiting, which showed nothing concerning and we believe that your nausea was caused by bowel overload and the hiatal hernia. You should resume your normal proton pump inhibitor for this at home, with a daily bowel program that may include over the counter mirralax/prune juice or Metamucil. We found that your red blood cell counts were low, and iron studies showed that you are iron deficient. You should take twice a day iron tabs, and get your blood re-checked in about a month. You had an echocardiogram that showed that you have pulmonary hypertension ( high right-sided heart pressures), so we recommend that you continue on Spironolactone that was started in the hospital, and STOP the hydrochlorathiazide. Please see your PCP within one week of this stay. Rest when you are tired. - TIME SPENT Time Spent in Discharge (Minutes): 60
[2017-10-22] MEDS ORDERED: ALENDRONATE 70 MG TABLET PO SCH (07:00)
== END 2017-10-19 12:01 | disposition home or self-care (01) | DRG 177 ==
LOC: ED 13:03 → OBS 15:49 → OBSVTOIN 10-17 11:34 → MS3 10-17 15:07
PROVIDERS: ADMIT Nurse Practitioner Gerontology; ATTEND Nurse Practitioner
DX: J15.5 Pneumonia due to Escherichia coli (principal); B37.1 Pulmonary candidiasis; J44.0 Chronic obstructive pulmonary disease with (acute) lower respiratory infection; J45.909 Unspecified asthma, uncomplicated; J15.211 Pneumonia due to Methicillin susceptible Staphylococcus aureus; I11.9 Hypertensive heart disease without heart failure; D50.9 Iron deficiency anemia, unspecified; I27.20 Pulmonary hypertension, unspecified; E11.9 Type 2 diabetes mellitus without complications; K44.9 Diaphragmatic hernia without obstruction or gangrene; K21.9 Gastro-esophageal reflux disease without esophagitis; F32.9 Major depressive disorder, single episode, unspecified; F41.9 Anxiety disorder, unspecified; M19.90 Unspecified osteoarthritis, unspecified site; M79.7 Fibromyalgia; M06.9 Rheumatoid arthritis, unspecified; M85.80 Other specified disorders of bone density and structure, unspecified site; G89.29 Other chronic pain; M54.9 Dorsalgia, unspecified; I25.10 Atherosclerotic heart disease of native coronary artery without angina pectoris; Z79.891 Long term (current) use of opiate analgesic; Z79.51 Long term (current) use of inhaled steroids; Z79.82 Long term (current) use of aspirin; Z79.899 Other long term (current) drug therapy; Z95.5 Presence of coronary angioplasty implant and graft; I25.2 Old myocardial infarction; Z85.3 Personal history of malignant neoplasm of breast; Z85.038 Personal history of other malignant neoplasm of large intestine; Z90.13 Acquired absence of bilateral breasts and nipples; Z87.891 Personal history of nicotine dependence; Z79.84 Long term (current) use of oral hypoglycemic drugs
CPT/HCPCS: 36415; 36430; 71045; 74177; 80053; 81001; 81003; 82270; 82607; 82728; 83036; 83540; 83605; 83615; 83690; 83735; 84466; 84484; 85014; 85018; 85025; 85044; 86850; 86900; 86901; 86920; 87040; 87070; 87086; 87205; 93005; 93306; 94640; 96361; 96365; 96366; 96367; 96372; 99284; 99285

== ENCOUNTER 2018-03-09 11:52 | Outpatient (CLI) | payer MEDICARE, OTHER | END 2018-03-09 11:53 | disposition critical access hospital (66) | LOC: EMS 11:52 | PROVIDERS: ATTEND Surgery | DX: R50.9 Fever, unspecified (principal); R51 Headache | CPT/HCPCS: A0425; A0427 ==

== ENCOUNTER 2018-03-09 12:12 | Emergency (ER) | payer MEDICARE, OTHER ==
[2018-03-09] MEDS ORDERED: ACETAMINOPHEN 325 MG TABLET PO STA (13:57)
[2018-03-09] MEDS ORDERED: SODIUM CHLORIDE 0.9% 1,000 ML IV ONE ×2 (13:57→14:47)
--- NOTE | 2018-03-09 13:58 | ED Physician Documentation ---
PD HPI ALTERED MENTAL STATUS - Stated complaint Stated Complaint: WEAKNESS - Chief complaint Chief Complaint: Fever - History obtained from History obtained from: Patient - History of Present Illness Timing - onset: Other (72-year-old woman with history of COPD presents with 3 weeks of cough. She was seen earlier in the month by her primary care physician and started on prednisone and some codeine cough syrup. She has been persistent in her cough which is occasionally productive of colored sputum. She has been dizzy over the last 3 days and not eating or drinking well the low appetite. She went to the doctor's office today and found to have a fever. She was referred here for further evaluation and treatment. She did not know she had a fever until she was at the doctor's office.) Review of Systems Constitutional: reports: Chills, Fatigue Nose: reports: Rhinorrhea / runny nose Throat: denies: Sore throat Cardiac: denies: Chest pain / pressure Respiratory: reports: Dyspnea, Cough GI: denies: Abdominal Pain, Vomiting, Diarrhea PD PAST MEDICAL HISTORY - Past Medical History Cardiovascular: Hypertension, High cholesterol, Coronary artery disease, MS Respiratory: Asthma Endocrine/Autoimmune: Type 2 diabetes, Other GI: GERD, Colon polyps, Cholelithiasis : None HEENT: Other Psych: Depression, Anxiety Musculoskeletal: Osteoarthritis, Fibromyalgia, Rheumatoid arthritis, Osteopenia, Chronic back pain Derm: None - Past Surgical History Past Surgical History: Yes General: Cholecystectomy, Colonoscopy, Other 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, 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 Cardiovascular: Coronary stent HEENT: Cataracts - Present Medications Home Medications: Ambulatory Orders Medication Instructions Recorded Confirmed Alendronate Sodium 70 mg PO Q7D 07/14/15 10/16/17 Metoprolol Tartrate [Lopressor] 25 mg PO BID 07/14/15 10/16/17 Omeprazole 40 mg PO DAILY 07/14/15 10/16/17 Pravastatin [Pravachol] 20 mg PO DAILY 08/04/15 10/16/17 busPIRone [Buspar] 15 mg PO BID 08/04/15 10/16/17 Aspirin [Adult Low Dose Aspirin EC] 81 mg PO DAILY 10/06/15 10/16/17 [place]-3/Dha/Epa/Fish Oil [Fish Oil 2,000 mg PO DAILY 10/06/15 10/16/17 Conc 1,000 mg Softgel] Citalopram [CeleXA] 20 mg PO DAILY 09/13/16 10/16/17 Cyanocobalamin (Vitamin B-12) 500 mcg SL DAILY 10/16/17 10/16/17 [Vitamin B-12 (500 mcg sublingual)] Garlic 1,000 mg PO DAILY 10/16/17 10/16/17 Multivit-Min/Folic Acid/Vit K1 1 each PO DAILY 10/16/17 10/16/17 [Multi For Her 50 Plus Softgel] Niacin (Inositol Niacinate) 500 mg PO BID 10/16/17 10/16/17 [Niacin 500 mg Capsule] Metformin HCl 100 mg PO BIDWM 10/17/17 10/17/17 Azithromycin [Zithromax Tri-Jerson] 500 mg PO DAILY 10 Days #10 tablet 10/19/17 Ferrous Sulfate 325 mg PO BID #60 tablet 10/19/17 Saccharomyces Boulardii [Florastor] 250 mg PO BID #60 capsule 10/19/17 Spironolactone [Aldactone] 25 mg PO DAILY #30 tablet 10/19/17 guaiFENesin [Mucinex] 600 mg PO BID #60 tablet 10/19/17 Levofloxacin [Levaquin] 750 mg PO DAILY #7 tablet 03/09/18 - Allergies Allergies/Adverse Reactions: Allergies Allergy/AdvReac Type Severity Reaction Status Date / Time lactose Allergy Intermediate Rash Verified 03/09/18 12:20 atorvastatin calcium * Allergy Rash Verified 03/09/18 12:20 [From Lipitor] mushroom Allergy Anaphylaxis Verified 03/09/18 12:20 cat gut AdvReac Intermediate Unknown Uncoded 03/09/18 12:20 - Social History Does the pt smoke?: No Smoking Status: Never smoker Does the pt drink ETOH?: No Does the pt have substance abuse?: No - Immunizations Immunizations are current?: Yes - POLST POLST Status: Full Code PD ED PE NORMAL - Vitals Vital signs reviewed: Yes - General General: Alert and oriented X 3, No acute distress - HEENT HEENT: PERRL, EOMI, Other (Very dry mucous membranes) - Neck Neck: Supple, no meningeal sign, No bony TTP - Cardiac Cardiac: RRR, No murmur - Respiratory Respiratory: No respiratory distress, Other (Diminished at the left base) - Abdomen Abdomen: Soft, Non tender - Back Back: No CVA TTP, No spinal TTP - Derm Derm: No rash - Extremities Extremities: No edema, No calf tenderness / cord - Neuro Neuro: Alert and oriented X 3, Normal speech Results - Vitals Vitals: Vital Signs - 24 hr 03/09/18 03/09/18 12:20 13:53 Temperature 38.6 C H 38.2 C H Heart Rate 86 90 Respiratory 18 20 Rate Blood Pressure 138/71 H 170/75 H O2 Saturation 95 96 Oxygen O2 Source Room air - Labs Labs: Laboratory Tests 03/09/18 03/09/18 03/09/18 14:00 14:10 14:26 WBC 11.7 H RBC 3.52 L Hgb 11.2 L Hct 33.2 L MCV 94.3 MCH 31.8 H MCHC 33.8 RDW 15.1 H Plt Count 214 MPV 8.9 Neut # (Auto) 10.1 H Lymph # (Auto) 0.7 L [place] # (Auto) 0.8 Eos # (Auto) 0.0 Baso # (Auto) 0.1 Absolute Nucleated RBC 0.00 Nucleated RBC % 0.0 Sodium Potassium Chloride Carbon Dioxide Anion Gap BUN Creatinine Estimated GFR (MDRD) Glucose Lactic Acid Calcium Total Bilirubin AST ALT Alkaline Phosphatase Total Protein Albumin Globulin Albumin/Globulin Ratio Lipase Urine Color YELLOW Urine Clarity CLEAR Urine pH 5.5 Ur Specific [place] 1.025 Urine Protein NEGATIVE Urine Glucose (UA) NEGATIVE Urine Ketones NEGATIVE Urine Occult Blood NEGATIVE Urine Nitrite NEGATIVE Urine Bilirubin NEGATIVE Urine Urobilinogen 0.2 (NORMAL) Ur Leukocyte Esterase NEGATIVE Ur Microscopic Review NOT INDICATED Urine Culture Comments NOT INDICATED Influenza A (Rapid) Negative Influenza B (Rapid) Negative 03/09/18 03/09/18 14:26 14:26 WBC RBC Hgb Hct MCV MCH MCHC RDW Plt Count MPV Neut # (Auto) Lymph # (Auto) [place] # (Auto) Eos # (Auto) Baso # (Auto) Absolute Nucleated RBC Nucleated RBC % Sodium 140 Potassium 3.8 Chloride 104 Carbon Dioxide 27 Anion Gap 9.0 BUN 30 H Creatinine 1.3 H Estimated GFR (MDRD) 40 L Glucose 134 H Lactic Acid 1.1 Calcium 8.6 Total Bilirubin 0.6 AST 18 ALT 18 Alkaline Phosphatase 41 L Total Protein 5.9 L Albumin 3.4 Globulin 2.5 Albumin/Globulin Ratio 1.4 Lipase 27 Urine Color Urine Clarity Urine pH Ur Specific [place] Urine Protein Urine Glucose (UA) Urine Ketones Urine Occult Blood Urine Nitrite Urine Bilirubin Urine Urobilinogen Ur Leukocyte Esterase Ur Microscopic Review Urine Culture Comments Influenza A (Rapid) Influenza B (Rapid) - Rads (name of study) 2v chest Radiology: EMP read contemporaneously (Retrocardiac infiltrate) PD MEDICAL DECISION MAKING - ED course ED course: 72-year-old with underlying COPD presents with fever and evidence of dehydration causing the dizziness she has been feeling for the last 3 days. She has mild prerenal azotemia, mild leukocytosis And evidence of left retrocardiac pneumonia. She was administered 2 L of IV fluids and IV Levaquin. She seems stable for discharge. - Sepsis Event Vital Signs: Vital Signs - 24 hr 03/09/18 03/09/18 12:20 13:53 Temperature 38.6 C H 38.2 C H Heart Rate 86 90 Respiratory 18 20 Rate Blood Pressure 138/71 H 170/75 H O2 Saturation 95 96 Oxygen O2 Source Room air Departure - Departure Disposition: 01 Home, Self Care Clinical Impression: Pneumonia Qualifiers: Pneumonia type: due to unspecified organism Laterality: left Lung location: lower lobe of lung Qualified Code(s): J18.1 - Lobar pneumonia, unspecified organism Condition: Good Record reviewed to determine appropriate education?: Yes Instructions: Pneumonia Dc Prescriptions: Levofloxacin [Levaquin] 750 mg PO DAILY #7 tablet Comments: Drink plenty of fluids. Follow-up with your doctor on Tuesday for recheck. Return if worsening. Your blood pressure was elevated today on check into the emergency department. This does not mean that you have hypertension, it is a common phenomenon to come to the emergency department and have elevated blood pressure. I recommend that you see your primary care physician within the week to have it rechecked when you are feeling better.
[2018-03-09 14:08] LABS: BILIRUBIN,URINE NEGATIVE (NEGATIVE); GLUCOSE, URINE (UA) NEGATIVE (NEGATIVE); KETONES,URINE (UA) NEGATIVE (NEGATIVE); LEUKOCYTE ESTERASE, URINE NEGATIVE (NEGATIVE); NITRITE,URINE NEGATIVE (NEGATIVE); OCCULT BLOOD,URINE NEGATIVE (NEGATIVE); PH,URINE 5.5 PH (5.0-7.5); PROTEIN,URINE NEGATIVE (NEGATIVE); UROBILINOGEN,URINE 0.2 (NORMAL) E.U./dL (NORMAL)
[2018-03-09 14:11] LABS: CLARITY,URINE CLEAR (CLEAR)
[2018-03-09 14:33] LABS: BASOPHILS # (AUTO) 0.1 10^3/uL (0.0-0.1); BASOPHILS % (AUTO) 0.4 %; EOSINOPHILS % (AUTO) 0.2 %; HGB - HEMOGLOBIN 11.2 g/dL (12.0-16.0); LYMPHOCYTES # (AUTO) 0.7 10^3/uL (1.5-3.5); LYMPHOCYTES % (AUTO) 5.8 %; MEAN CORPUSCULAR HEMOGLOBIN 31.8 pg (27.0-31.0); MEAN CORPUSCULAR HGB CONC 33.8 g/dL (32.0-36.0); MEAN CORPUSCULAR VOLUME 94.3 fL (81.0-99.0); MEAN PLATELET VOLUME 8.9 fL (7.9-10.8); MONOCYTES # (AUTO) 0.8 10^3/uL (0.0-1.0); NEUTROPHILS # (AUTO) 10.1 10^3/uL (1.5-6.6); NEUTROPHILS % (AUTO) 86.6 %; PLT - PLATELET COUNT 214 10^3/uL (130-450); RED BLOOD COUNT 3.52 10^6/uL (4.20-5.40); RED CELL DISTRIBUTION WIDTH 15.1 % (12.0-15.0); WHITE BLOOD COUNT 11.7 x10^3/uL (4.8-10.8)
[2018-03-09 14:46] LABS: ALBUMIN 3.4 g/dL (3.2-5.5); ALBUMIN/GLOBULIN RATIO 1.4 (1.0-2.2); BILIRUBIN,TOTAL 0.6 mg/dL (0.2-1.0); CALCIUM 8.6 mg/dL (8.5-10.3); CREATININE 1.3 mg/dL (0.4-1.0); TOTAL PROTEIN 5.9 g/dL (6.7-8.2)
--- NOTE | 2018-03-09 15:17 | XRAY Report ---
Reason: cough fever Procedure Date: 03/09/2018 Accession Number: [id number] / [id number] Procedure: XR - Chest 2 View X-Ray CPT Code: 40826 FULL RESULT: EXAM: CHEST RADIOGRAPHY. EXAM DATE: 03/09/2018 03:01 PM. CLINICAL HISTORY: Cough fever. COMPARISON: Chest 1 view 10/16/2017 1:46 PM. TECHNIQUE: 2 views. FINDINGS: Lungs/Pleura: There is mild predominantly linear retrocardiac opacities which could represent atelectasis or early airspace disease. No pleural effusion or pneumothorax. Mediastinum: Stable cardiomediastinal contour. Other: None. IMPRESSION: Mild retrocardiac left atelectasis versus early pneumonia. [facility]
[2018-03-09] MEDS ORDERED: levoFLOXacin 750 MG/150 ML 750 MG/150 ML BAG IV ONE (15:21)
[2018-03-09 17:24] VITALS: BP 140/75
== END 2018-03-09 17:20 | disposition home or self-care (01) ==
LOC: EDUNIT# → ED 12:12
DX: J18.1 Lobar pneumonia, unspecified organism (principal); I10 Essential (primary) hypertension; E11.9 Type 2 diabetes mellitus without complications; J44.9 Chronic obstructive pulmonary disease, unspecified; Z79.82 Long term (current) use of aspirin; Z79.84 Long term (current) use of oral hypoglycemic drugs; R79.89 Other specified abnormal findings of blood chemistry; D72.829 Elevated white blood cell count, unspecified
CPT/HCPCS: 36415; 71046; 80053; 81003; 83605; 83690; 85025; 87040; 87275; 87276; 96365; 99284; A9270; 81001; 87086

== ENCOUNTER 2018-04-25 12:55 | Emergency (ER) | payer MEDICARE, OTHER ==
--- NOTE | 2018-04-25 13:59 | XRAY Report ---
Reason: GLF rib pain Procedure Date: 04/25/2018 Accession Number: [id number] / [id number] Procedure: XR - Ribs w/PA Chest RT CPT Code: FULL RESULT: EXAM: RIGHT RIB RADIOGRAPHY EXAM DATE: 04/25/2018 01:22 PM. CLINICAL HISTORY: GLF rib pain. COMPARISON: None. TECHNIQUE: 1 view of the chest and 2 views of the ribs. FINDINGS: Bones: Irregularity of the anterior right fifth rib is favored to represent artifact, but it is difficult to completely exclude a fracture. No other rib fractures are seen.. Lungs: No focal opacities. No pneumothorax. No pleural effusions. Mediastinum: Heart and mediastinal contours are unremarkable. IMPRESSION: Irregular appearance of the anterior right fifth rib. Favor artifact, but correlate clinically for possible rib fracture. [facility]
--- NOTE | 2018-04-25 16:20 | ED Physician Documentation ---
PD HPI TRUNK INJURY - Stated complaint Stated Complaint: GLF/RIB PX - Chief complaint Chief Complaint: General - History obtained from History obtained from: Patient - History of Present Illness Location: Anterior chest, Right chest Type of injury: Fall (she says she lost balance with her walker and fell forward right. Pain in ribs.) Timing - onset: Yesterday Timing - duration: Days (1) Timing - details: Abrupt onset, Still present, Waxing and waning Quality: Pain Worsened by: Moving, Palpating, Other (moderate breathing) Associated symtptoms: No: Weakness, Numbness Contributing factors: No: Anticoagulated Where injury occured: Home Similar symptoms before: Diagnosis (had fallen with rib fracture in recent past.) Recently seen: Not recently seen Review of Systems Constitutional: denies: Fever Nose: denies: Rhinorrhea / runny nose, Congestion Throat: denies: Sore throat Cardiac: reports: Chest pain / pressure. denies: Palpitations, Pedal edema, Calf pain Respiratory: reports: Dyspnea. denies: Cough, Hemoptysis, Wheezing GI: reports: Abdominal Pain (some right upper abd.). denies: Nausea, Vomiting, Diarrhea : denies: Dysuria, Frequency Skin: denies: Abrasion (s), Laceration (s) Neurologic: denies: Focal weakness, Numbness, Altered mental status, Headache, Head injury PD PAST MEDICAL HISTORY - Past Medical History Cardiovascular: Hypertension, High cholesterol, Coronary artery disease, [place] Respiratory: Asthma Endocrine/Autoimmune: Type 2 diabetes, Other GI: GERD, Colon polyps, Cholelithiasis : None HEENT: Other Psych: Depression, Anxiety Musculoskeletal: Osteoarthritis, Fibromyalgia, Rheumatoid arthritis, Osteopenia, Chronic back pain Derm: None - Past Surgical History Past Surgical History: Yes General: Cholecystectomy, Colonoscopy, Other 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, 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 Cardiovascular: Coronary stent HEENT: Cataracts - Present Medications Home Medications: Ambulatory Orders Medication Instructions Recorded Confirmed Alendronate Sodium 70 mg PO Q7D 07/14/15 10/16/17 Metoprolol Tartrate [Lopressor] 25 mg PO BID 07/14/15 10/16/17 Omeprazole 40 mg PO DAILY 07/14/15 10/16/17 Pravastatin [Pravachol] 20 mg PO DAILY 08/04/15 10/16/17 busPIRone [Buspar] 15 mg PO BID 08/04/15 10/16/17 Aspirin [Adult Low Dose Aspirin EC] 81 mg PO DAILY 10/06/15 10/16/17 [place]-3/Dha/Epa/Fish Oil [Fish Oil 2,000 mg PO DAILY 10/06/15 10/16/17 Conc 1,000 mg Softgel] Citalopram [CeleXA] 20 mg PO DAILY 09/13/16 10/16/17 Cyanocobalamin (Vitamin B-12) 500 mcg SL DAILY 10/16/17 10/16/17 [Vitamin B-12 (500 mcg sublingual)] Garlic 1,000 mg PO DAILY 10/16/17 10/16/17 Multivit-Min/Folic Acid/Vit K1 1 each PO DAILY 10/16/17 10/16/17 [Multi For Her 50 Plus Softgel] Niacin (Inositol Niacinate) 500 mg PO BID 10/16/17 10/16/17 [Niacin 500 mg Capsule] Metformin HCl 100 mg PO BIDWM 10/17/17 10/17/17 Azithromycin [Zithromax Tri-Jerson] 500 mg PO DAILY 10 Days #10 tablet 10/19/17 Ferrous Sulfate 325 mg PO BID #60 tablet 10/19/17 Saccharomyces Boulardii [Florastor] 250 mg PO BID #60 capsule 10/19/17 Spironolactone [Aldactone] 25 mg PO DAILY #30 tablet 10/19/17 guaiFENesin [Mucinex] 600 mg PO BID #60 tablet 10/19/17 Levofloxacin [Levaquin] 750 mg PO DAILY #7 tablet 03/09/18 Naproxen 375 mg PO BID #20 tablet 04/25/18 Oxycodone HCl/Acetaminophen 1 - 2 each PO Q6H PRN #25 tablet 04/25/18 [Percocet 5-325 mg Tablet] - Allergies Allergies/Adverse Reactions: Allergies Allergy/AdvReac Type Severity Reaction Status Date / Time lactose Allergy Intermediate Rash Verified 04/25/18 13:18 atorvastatin calcium * Allergy Rash Verified 04/25/18 13:18 [From Lipitor] mushroom Allergy Anaphylaxis Verified 04/25/18 13:18 cat gut AdvReac Intermediate Unknown Uncoded 03/09/18 12:20 - Social History Does the pt smoke?: No Smoking Status: Never smoker Does the pt drink ETOH?: No Does the pt have substance abuse?: No - Immunizations Immunizations are current?: Yes - POLST POLST Status: Full Code PD ED PE NORMAL - Vitals Vital signs reviewed: Yes - General General: Alert and oriented X 3, Well developed/nourished, Other (appears uncomfortable and is guarding/splinting right anterolateral chest. ) - HEENT HEENT: Atraumatic, Pharynx benign, Dentition benign - Neck Neck: Supple, no meningeal sign, No bony TTP - Cardiac Cardiac: RRR, No murmur - Respiratory Respiratory: Clear bilaterally, Other (right anterolateral chest with local pain. No noted crepitance. ) - Abdomen Abdomen: Soft, Non distended, No organomegaly, Other - Back Back: No CVA TTP, No spinal TTP - Derm Derm: Normal color, Warm and dry - Extremities Extremities: No tenderness to palpate, Normal ROM s pain - Neuro Neuro: Alert and oriented X 3, No motor deficit, Normal speech Results - Vitals Vitals: Oxygen O2 Source Room air - Labs Labs: Laboratory Tests 04/25/18 04/25/18 17:05 17:05 WBC 7.6 RBC 4.08 L Hgb 12.8 Hct 38.5 MCV 94.3 MCH 31.3 H MCHC 33.2 RDW 13.3 Plt Count 343 MPV 8.7 Neut # (Auto) 3.9 Lymph # (Auto) 2.7 [place] # (Auto) 0.7 Eos # (Auto) 0.2 Baso # (Auto) 0.0 Absolute Nucleated RBC 0.00 Nucleated RBC % 0.1 Sodium 142 Potassium 3.2 L Chloride 109 Carbon Dioxide 23 Anion Gap 10.0 BUN 19 Creatinine 1.0 Estimated GFR (MDRD) 54 L Glucose 83 Calcium 9.0 Total Bilirubin 0.8 AST 19 ALT 15 Alkaline Phosphatase 44 Total Protein 6.9 Albumin 3.9 Globulin 3.0 Albumin/Globulin Ratio 1.3 Lipase 71 H - Rads (name of study) chest with ribs by triage Radiology: Prelim report reviewed (rib fracture anterolaterally) chest and abd CT Radiology: Prelim report reviewed (rib fractures 8 and 9. ORgans okay. abd organs good. ) PD MEDICAL DECISION MAKING - ED course Complexity details: reviewed results, re-evaluated patient (doing okay after some pain meds. ), considered differential (chest xray by nursing triage with rib fracture. She is tender RUQ abd as well, so got CT to assess for organ injury. This showed 2 rib fractures but good organs. ), d/w patient Departure - Departure Disposition: 01 Home, Self Care Clinical Impression: Fall from slip, trip, or stumble Qualifiers: Encounter type: initial encounter Qualified Code(s): W01.0XXA - Fall on same level from slipping, tripping and stumbling without subsequent striking against object, initial encounter Rib fractures Qualifiers: Encounter type: initial encounter Rib fracture type: multiple ribs Fracture type: closed Laterality: right Qualified Code(s): S22.41XA - Multiple fractures of ribs, right side, initial encounter for closed fracture Condition: Stable Record reviewed to determine appropriate education?: Yes Instructions: ED Fx Rib Follow-Up: Billie Gerber PA-C [Primary Care Provider] - Prescriptions: Naproxen 375 mg PO BID #20 tablet Oxycodone HCl/Acetaminophen [Percocet 5-325 mg Tablet] 1 - 2 each PO Q6H PRN #25 tablet PRN Reason: pain Comments: Activity as able. Naproxen twice daily for the next 7-10 days for inflammation and pain. Add Tylenol or Percocet as needed for pain. Follow-up with your primary care in the next 2-3 days, call for an appointment. The CT scan showed 2 rib fractures at the seventh and eighth ribs that are nondisplaced. There is no signs of lung liver or other organ injury. Discharge Date/Time: 04/25/18 20:58
[2018-04-25] MEDS ORDERED: MORPHINE 2 MG/ML CARPUJECT IVP STA (16:37)
[2018-04-25] MEDS ORDERED: SODIUM CHLORIDE 0.9% 1,000 ML IV ONE (16:38)
[2018-04-25] MEDS ORDERED: KETOROLAC 15 MG/ML VIAL IVP STA (16:38)
[2018-04-25] MEDS ORDERED: ACETAMINOPHEN 325 MG TABLET PO STA (16:40)
[2018-04-25 17:20] LABS: BASOPHILS % (AUTO) 0.6 %; EOSINOPHILS # (AUTO) 0.2 10^3/uL (0.0-0.7); EOSINOPHILS % (AUTO) 3.1 %; HGB - HEMOGLOBIN 12.8 g/dL (12.0-16.0); LYMPHOCYTES # (AUTO) 2.7 10^3/uL (1.5-3.5); LYMPHOCYTES % (AUTO) 34.9 %; MEAN CORPUSCULAR HEMOGLOBIN 31.3 pg (27.0-31.0); MEAN CORPUSCULAR HGB CONC 33.2 g/dL (32.0-36.0); MEAN CORPUSCULAR VOLUME 94.3 fL (81.0-99.0); MEAN PLATELET VOLUME 8.7 fL (7.9-10.8); MONOCYTES # (AUTO) 0.7 10^3/uL (0.0-1.0); MONOCYTES % (AUTO) 9.6 %; NEUTROPHILS # (AUTO) 3.9 10^3/uL (1.5-6.6); NEUTROPHILS % (AUTO) 51.8 %; PLT - PLATELET COUNT 343 10^3/uL (130-450); RED BLOOD COUNT 4.08 10^6/uL (4.20-5.40); RED CELL DISTRIBUTION WIDTH 13.3 % (12.0-15.0); WHITE BLOOD COUNT 7.6 x10^3/uL (4.8-10.8)
[2018-04-25 17:31] LABS: ALBUMIN 3.9 g/dL (3.2-5.5); ALBUMIN/GLOBULIN RATIO 1.3 (1.0-2.2); BILIRUBIN,TOTAL 0.8 mg/dL (0.2-1.0); TOTAL PROTEIN 6.9 g/dL (6.7-8.2)
[2018-04-25] MEDS ORDERED: IOPAMIDOL-300 100 ML VIAL ONE (17:58)
[2018-04-25] MEDS ORDERED: HYDROmorphone 1 MG/ML CARPUJECT IVP STA ×2 (18:07→19:47)
[2018-04-25] MEDS ORDERED: IOPAMIDOL-300 100 ML VIAL IVP ONE (18:41)
--- NOTE | 2018-04-25 19:18 | CT Report ---
Reason: FALL WITH RIGHT RIBS, RUQ PAIN. Procedure Date: 04/25/2018 Accession Number: [id number] / [id number] Procedure: CT - Chest W/ CPT Code: FULL RESULT: EXAM: CT CHEST EXAM DATE: 04/25/2018 06:07 PM. CLINICAL HISTORY: FALL WITH RIGHT RIBS, RUQ PAIN. COMPARISONS: 10/08/2015. TECHNIQUE: Routine helical CT imaging was performed through the chest. IV contrast: 100 mL Isovue-300. Reconstructions: Coronal and sagittal. In accordance with CT protocol optimization, one or more of the following dose reduction techniques were utilized for this exam: automated exposure control, adjustment of mA and/or KV based on patient size, or use of iterative reconstructive technique. FINDINGS: Lungs/Pleura: The lungs are clear aside from a band of atelectasis or scar in the left lower lobe. No consolidation, pleural effusion or pneumothorax. Mediastinum: Normal heart size. Coronary calcifications. No aortic dissection. There is a large hiatal hernia. Patulous and fluid-filled esophagus. There is linear low attenuation within the distal right main pulmonary artery extending into the right upper lobe and right lower lobe pulmonary arteries. Probable small amount of peripheral low attenuation in the right lower lobe segmental artery. Bones: There are acute nondisplaced fractures of the right lateral eighth and ninth ribs. No additional acute fracture identified. There are several old healed right anterior and posterior rib fractures. Mild osteopenia. Compression deformity of T6 has increased from prior and demonstrate increased sclerosis. Mild superior endplate compression fractures are new from prior. Visualized Abdomen: See separately dictated CT. Other: None. IMPRESSION: 1. Acute right eighth and ninth rib fractures. No pneumothorax. 2. Increased compression deformity of T6 with increased sclerosis throughout the vertebral body since 10/08/2015. Pathologic fracture not excluded. Mild superior endplate compression fractures of T1 and T2 are new from prior but likely old. 3. Linear low attenuation in the right upper and lower lobar arteries is most consistent with chronic pulmonary emboli. 4. Large hiatal hernia. Patulous and fluid-filled esophagus. RAD[facility]
--- NOTE | 2018-04-25 19:29 | CT Report ---
Reason: fall with right chest/RUQ abd pain Procedure Date: 04/25/2018 Accession Number: [id number] / [id number] Procedure: CT - Abdomen/Pelvis W/ CPT Code: FULL RESULT: EXAM: CT ABDOMEN AND PELVIS EXAM DATE: 04/25/2018 06:37 PM. CLINICAL HISTORY: Fall with right chest/RUQ abd pain. COMPARISONS: The same day chest CT, 10/18/2017. TECHNIQUE: Routine helical CT imaging was performed through the abdomen and pelvis. IV contrast: 100 ML ISOVUE 300. Enteric contrast: No. Reconstructions: Coronal and sagittal. In accordance with CT protocol optimization, one or more of the following dose reduction techniques were utilized for this exam: automated exposure control, adjustment of mA and/or KV based on patient size, or use of iterative reconstructive technique. FINDINGS: Liver: Normal. No laceration. Gallbladder/Bile Ducts: Cholecystectomy. There is intra-and extrahepatic bile duct dilation, similar to prior. Spleen: Normal Pancreas: Atrophic. Adrenal Glands: Bilateral adrenal nodules are unchanged. Kidneys: No hydronephrosis. Inferior pole left renal cyst. Small right renal cysts. Peritoneal Cavity/Bowel: No hemoperitoneum. Large lower ventral hernia containing mesentery and small bowel loops is unchanged. No evidence of obstruction. Mild distention of the redundant transverse colon. No free fluid, free air or adenopathy. Pelvic Organs: Unremarkable bladder. Uterus is absent. Vasculature: Moderate to marked atherosclerosis without aneurysm. Bones: There are acute right eighth and ninth rib fractures. No additional fracture identified. Mild lumbar scoliosis. Grade 1 degenerative anterolisthesis of L4 on L5. Other: None. IMPRESSION: 1. Acute right eighth and ninth rib fractures. Otherwise no acute abnormality. 2. Unchanged bowel containing ventral hernia. RADIA
[2018-04-25 20:23] VITALS: BP 150/78
== END 2018-04-25 20:58 | disposition home or self-care (01) ==
LOC: ED 12:55
DX: S22.41XA Multiple fractures of ribs, right side, initial encounter for closed fracture (principal); W01.0XXA Fall on same level from slipping, tripping and stumbling without subsequent striking against object, initial encounter; K44.9 Diaphragmatic hernia without obstruction or gangrene; K43.9 Ventral hernia without obstruction or gangrene; I10 Essential (primary) hypertension; I25.10 Atherosclerotic heart disease of native coronary artery without angina pectoris; I25.2 Old myocardial infarction; E11.9 Type 2 diabetes mellitus without complications; Z79.84 Long term (current) use of oral hypoglycemic drugs; Z95.5 Presence of coronary angioplasty implant and graft
CPT/HCPCS: 36415; 71101; 71260; 74177; 80053; 83690; 85025; 96361; 96374; 96375; 96376; 99283; A9270; J1170; Q9967